=== PATIENT | female | born 1995 | race Two or more races ===

== ENCOUNTER 2019-12-30 17:13 | Inpatient (IN) | payer MEDICAID ==
[~2019-12-30] VITALS: Ht 170.2 cm; Wt 63.5 kg
--- NOTE | 2019-12-30 17:41 | NUR ---
glenn c/o sickle cell crisis started this morning around 9am 10/10 ps. PT PRESENTS MOANING, RESTLESS, FACIAL GRIMACING, GUARDING. DENIES SOB, DIZZINESS, WEAKNESS. SKIN WARM, DRY, INTACT. AOX4, AMBULATORY, VSS, RR EVEN AND UNLABORED. ON MONITOR AND READY FOR EVAL.
[2019-12-30] MEDS ORDERED: ONDANSETRON HCL/PF 4 MG/2 ML VIAL ONE (17:49)
[2019-12-30] MEDS ORDERED: MORPHINE SULFATE INJ 4 MG/ML DISP.SYRIN ONE (17:49)
[2019-12-30] MEDS ORDERED: MORPHINE SULFATE INJ 2 MG/ML DISP.SYRIN IV ONE (18:00)
[2019-12-30] MEDS ORDERED: ONDANSETRON HCL/PF 4 MG/2 ML VIAL IVP ONE (18:00)
[2019-12-30] MEDS ORDERED: IV NS 0.9% 1,000 ML BAG IV ONE (18:00)
--- NOTE | 2019-12-30 18:20 | NUR ---
IV LINE ESTABLISHED. MEDS GIVEN, IVF INFUSING. PT LETICIA WELL.
[2019-12-30] MEDS ORDERED: HYDROMORPHONE 1 MG/1 ML DISP.SYRIN IV ONE ×3 (18:30→20:30)
[2019-12-30] MEDS ORDERED: HYDROMORPHONE 1 MG/1 ML DISP.SYRIN ONE ×3 (18:45→20:46)
[2019-12-30 19:01] LABS: BASOPHILS # (AUTO) 0.2 /CMM (0.0-0.2); BASOPHILS % (AUTO) 1.1 % (0.0-2.0); EOSINOPHILS % (AUTO) 0.1 % (0.0-6.0); HEMATOCRIT 29 % (33-45); HEMOGLOBIN 9.6 g/dL (11.5-14.8); LYMPHOCYTES # (AUTO) 1.5 /CMM (0.8-4.8); LYMPHOCYTES % (AUTO) 7.3 % (20.0-44.0); MEAN CORPUSCULAR HGB CONC 33 g/dl (31.0-36.0); MEAN CORPUSCULAR VOLUME 87 fL (82-100); MONOCYTES # (AUTO) 1.6 /CMM (0.1-1.30); MONOCYTES % (AUTO) 7.7 % (2.0-12.0); NEUTROPHILS # (AUTO) 17.8 /CMM (1.8-8.9); NEUTROPHILS % (AUTO) 83.8 % (43.0-81.0); PLATELET COUNT (AUTO) 338 /CMM (150-450); RED BLOOD CELL COUNT(AUTO) 3.33 MIL/uL (4.0-5.2); WHITE BLOOD COUNT (AUTO) 21.2 K/uL (4.3-11.0)
[2019-12-30 19:13] LABS: CALCIUM, SERUM 8.8 mg/dL (8.5-10.1); CARBON DIOXIDE 27 mmol/L (21-32); CHLORIDE 103 mmol/L (98-107); CREATININE 0.7 mg/dL (0.6-1.3); GLUCOSE 109 mg/dL (74-106); POTASSIUM 3.4 mmol/L (3.5-5.1); SODIUM SERUM 140 mmol/L (136-145); UREA NITROGEN, BLOOD 9 mg/dL (7-18)
--- NOTE | 2019-12-30 19:15 | NUR ---
PT REPORTS LITTLE PAIN RELIEF. VULCAN CREWMEMBER GILBERT NOTIFIED.
[2019-12-30 19:19] LABS: ALANINE AMINOTRANSFERASE 18 U/L (12-78); ALBUMIN 4.1 g/dL (3.4-5.0); ALKALINE PHOSPHATASE 75 U/L (46-116); ASPARTATE AMINOTRANSFERASE 45 U/L (15-37); BILIRUBIN,DIRECT 0.4 mg/dL (0.0-0.2); BILIRUBIN,TOTAL 1.4 mg/dL (0.2-1.0); TOTAL PROTEIN, SERUM 7.3 g/dL (6.4-8.2)
[2019-12-30] MEDS ORDERED: diphenhydrAMINE HCL 50 MG/ML VIAL ONE (19:25)
[2019-12-30] MEDS ORDERED: diphenhydrAMINE HCL 50 MG/ML VIAL IV ONE (19:30)
--- NOTE | 2019-12-30 20:26 | NUR ---
ER PROVIDER ON PHONE WITH HOSPITALIST
--- NOTE | 2019-12-30 20:32 | NUR ---
CALLED SUP FOR MS BED
[2019-12-30] MEDS ORDERED: IV 1/2NS 1000 ML 1,000 ML IV PRN (20:44)
--- NOTE | 2019-12-30 20:50 | NUR ---
CALLED SUP FOR NOW TELE BED. NOT MS
[2019-12-30] MEDS ORDERED: ZOLPIDEM TARTRATE 5 MG TABLET PO PRN (21:00)
[2019-12-30] MEDS ORDERED: Z GUARD REMEDY 2 OZ OINT TP PRN (21:00)
[2019-12-30] MEDS ORDERED: MAG HYDROX/AL HYDROX/SIMETH 30 ML UDC PO PRN (21:00)
[2019-12-30] MEDS ORDERED: ONDANSETRON HCL/PF 4 MG/2 ML VIAL IVP PRN (21:00)
[2019-12-30] MEDS ORDERED: ACETAMINOPHEN 325 MG TABLET PO PRN (21:00)
[2019-12-30] MEDS ORDERED: HYDROMORPHONE INJ 2 MG/ML DISP.SYRIN IV PRN (21:00)
[2019-12-30] MEDS ORDERED: MAGNESIUM HYDROXIDE 30 ML UDC PO PRN (21:00)
--- NOTE | 2019-12-30 21:29 | NUR ---
CALLED TO GIVE REPORT. RECEIVING NURSE UNAVAILABLE AT THIS TIME. WILL CALL BACK
--- NOTE | 2019-12-30 21:36 | NUR ---
REPORT GIVEN TO ENA CARRINGTON FOR [facility] [facility] ACCEPTING
--- NOTE | 2019-12-30 21:47 | NUR ---
PT TRANSFERRED TO UNIT VIA GURNEY PER ACLS PROTOCOL
--- NOTE | 2019-12-30 21:53 | NUR ---
KEYBOARD SPECIALIST NOTES PATIENT ARRIVED UNIT 215. PATIENT IS ALERT AND ORIENTED X 4. BREATHING EVEN AND UNLABORED ON 2L NC. SHOWS NO SIGNS OF ACUTE RESPIRATORY DISTRESS. PATIENT PAIN RATING 10/10. IV ON EJ 18G AND 22G L WRIST IS CLEAN DRY AND INTACT. SHOWS NO SIGNS OF INFILTRATION, NO REDNESS. SAFETY PRECAUTIONS IN PLACE. BELONGINGS CHECKLIST COMPLETED, ORIENTED TO ROOM AND STAFF. TELE MONITOR SR 90'S. BED IN LOWEST POSITION, LOCKED, AND CALL LIGHT KEPT WITHIN REACH. WILL CONTINUE TO MONITOR.
--- NOTE | 2019-12-30 21:53 | NUR ---
LINUX ADMIN NOTES PATIENT COMPLAINING OF PAIN 08/21. GIVEN DILAUDID [id number]. WILL CONTINUE TO MONITOR.
[2019-12-30 22:00] VITALS: BP 117/67
[2019-12-30 22:30] VITALS: BP 117/67
[2019-12-30] MEDS: HYDROCODONE/APAP 5/325MG 1 EACH TABLET PO PRN (23:19)
--- NOTE | 2019-12-30 23:19 | NUR ---
PATIENT FINANCIAL COUNSELOR NOTES PATIENT COMPLAINING OF PAIN 07/22. GIVEN NORCO [id number]. WILL CONTINUE TO MONITOR.
[2019-12-31] VITALS: BP 124/73
[2019-12-31] MEDS ORDERED: HYDROMORPHONE INJ 2 MG/ML DISP.SYRIN ONE (00:08)
--- NOTE | 2019-12-31 00:23 | NUR ---
TINTER PHOTOGRAPH NOTES PATIENT COMPLAINING OF PAIN 08/21. GIVEN DILAUDID [id number]. WILL CONTINUE TO MONITOR.
[2019-12-31] MEDS: HYDROCODONE/APAP 5/325MG 1 EACH TABLET PO PRN (02:59)
--- NOTE | 2019-12-31 02:59 | NUR ---
MAGNAFLUX OPERATOR NOTES PATIENT COMPLAINING OF PAIN 05/21. GIVEN NORCO [id number]. WILL CONTINUE TO MONITOR.
[2019-12-31] MEDS: HYDROMORPHONE INJ 2 MG/ML DISP.SYRIN IV PRN ×6 (04:01→21:36)
--- NOTE | 2019-12-31 04:01 | NUR ---
SIEVE MAKER NOTES PATIENT COMPLAINING OF PAIN 08/21. GIVEN DILAUDID [id number]. WILL CONTINUE TO MONITOR.
[2019-12-31 04:10] VITALS: BP 132/92
--- NOTE | 2019-12-31 06:49 | NUR ---
SALESPERSON MEN'S AND BOYS' CLOTHING NOTES PATIENT IS ALERT AND ORIENTED X 4. BOYFRIEND AT BEDSIDE. BREATHING EVEN AND UNLABORED ON 2L NC. SHOWS NO SIGNS OF ACUTE RESPIRATORY DISTRESS. PATIENT PAIN RATING 10/10. IV ON EJ 18G AND 22G L WRIST IS CLEAN DRY AND INTACT. RUNNING 1/2 NS AT 75ML/HR. SHOWS NO SIGNS OF INFILTRATION, NO REDNESS. ALL DUE MEDICATIONS GIVEN. SAFETY PRECAUTIONS IN PLACE. TELE MONITOR SINUS TACH 100'S. BED IN LOWEST POSITION, LOCKED, AND CALL LIGHT KEPT WITHIN REACH. WILL ENDORSE TO ONCOMING NURSE.
--- NOTE | 2019-12-31 07:51 | NUR ---
TELE/RN OPENING NOTE Patient is resting in bed, A/O x4, showing no signs of acute distress or SOB, saturating >95% on 2L NC. IV line is clean and intact L wrist #22g runnning 1/2 NS @ 75ml/hr. #18g external jugular noted. Patient has complaints of pain at this time and stated "I don't think the pain medication i'm getting is working." I told her I will relay that information to the MD. Last pain med given by paper cone machine operator RN at 0712 this AM. Bed is in lowest position, side rails x2 in upright position, call light is within reach and patient is aware of how to call for assistance when needed. Boyfriend is at the bedside. Will continue with plan of care. Addendum: 12/31/19 at 0756 by GWENDOLYN JACOB RN Tele monitor SR/ST w/PVCs
[2019-12-31 07:58] LABS: BASOPHILS # (AUTO) 0.1 /CMM (0.0-0.2); BASOPHILS % (AUTO) 0.4 % (0.0-2.0); HEMATOCRIT 29 % (33-45); HEMOGLOBIN 9.8 g/dL (11.5-14.8); LYMPHOCYTES # (AUTO) 1.9 /CMM (0.8-4.8); LYMPHOCYTES % (AUTO) 8.7 % (20.0-44.0); MEAN CORPUSCULAR HGB CONC 34 g/dl (31.0-36.0); MEAN CORPUSCULAR VOLUME 86 fL (82-100); MONOCYTES # (AUTO) 2.5 /CMM (0.1-1.30); MONOCYTES % (AUTO) 11.4 % (2.0-12.0); NEUTROPHILS # (AUTO) 17.5 /CMM (1.8-8.9); NEUTROPHILS % (AUTO) 79.5 % (43.0-81.0); PLATELET COUNT (AUTO) 343 /CMM (150-450); RED BLOOD CELL COUNT(AUTO) 3.35 MIL/uL (4.0-5.2)
[2019-12-31 08:00] VITALS: BP 113/64
[2019-12-31 08:57] LABS: CALCIUM, SERUM 8.8 mg/dL (8.5-10.1); CREATININE 0.6 mg/dL (0.6-1.3); MAGNESIUM 1.6 mg/dL (1.8-2.4); PHOSPHORUS 3.1 mg/dL (2.5-4.9); POTASSIUM 3.3 mmol/L (3.5-5.1); THYROID STIMULATING HORMONE 2.122 uIU/mL (0.358-3.74)
[2019-12-31] MEDS: IV 1/2NS 1000 ML 1,000 ML IV SCH (09:12)
--- NOTE | 2019-12-31 09:34 | NUR ---
TELE/RN NOTE Patient requested for Dilauded to be [id number] instead of [id number]. Stated that is what she usually gets when she is being hospitalized. Notified MD and he gave the ok to change Dilauded to [id number].
[2019-12-31] MEDS: POTASSIUM CHLORIDE 20 MEQ TAB.PRT.SR PO SCH (13:11)
[2019-12-31 16:00] VITALS: BP 116/74
[2019-12-31] MEDS: ACETAMINOPHEN 325 MG TABLET PO SCH (17:07)
[2019-12-31] MEDS: KETOROLAC TROMETHAMINE INJ 30 MG/ML VIAL IV SCH (17:07)
--- NOTE | 2019-12-31 19:34 | NUR ---
MS/RN CLOSING NOTE Patient is resting in bed, A/O x4, showing no signs of acute distress or SOB, saturating >95% on 2L NC. IV line is clean and intact L wrist #22g running 1/2 NS @ 75ml/hr. Patient seen by MD and pain medications given per MD order. Last medication given Tylenol 650mg @ 1707 and Toradol 30mg @1707. Patient's vital signs WNL. Bed is in lowest position, side rails x2 in upright position, call light is within reach and patient is aware of how to call for assistance when needed. Will endorse to night manager. .
[2019-12-31] MEDS: oxyCODONE IR immediate release 5 MG PO PRN (19:41)
--- NOTE | 2019-12-31 19:41 | NUR ---
MS RN NOTES PATIENT PRESENTS OF PAIN, RATING PAIN LEVEL OF 8/10. PAIN LOCATED ON LOWER BACK AND BOTH LEGS DESCRIBED A SHARP AND PRESSURED PAIN. ADMINISTERED OXY IR 10 mg PO. PATIENTS VITAL SIGNS WNL, BP: 117/69, HR: 74, O2 SAT: 99%, TEMP: 98.0, AND RESPIRATORY RATE: 17. WILL CONTINUE TO MONITOR PATIENT.
[2019-12-31 20:00] VITALS: BP 117/69
--- NOTE | 2019-12-31 20:23 | NUR ---
MS RN NOTES PATIENT RECEIVED IN BED RESTING, ALERT AND ORIENTED X 4. PATIENT ON NASAL CANNULA FOR COMFORT MEASURES, O2 SATURATION >95%. NO SIGNS OF RESPIRATORY DISTRESS PRESENT, WITH EVEN NON-LABORED BREATHING. PATIENT IV ACCESS CLEAN, IN PLACE, AND INTACT ON LEFT WRIST 22 GAUGE. PROVIDED COMFORT MEASURES TO PATIENT, PRESENTING WITH PAIN UPON SHIFT, STATED PAIN LEVEL OF 8/10, PRESENTING IN HER LOWER BACK AND LEGS. SAFETY PRECAUTIONS IN PLACE WITH BED IN THE LOWEST POSITION, BILATERAL SIDE RAILS UP, BED ALARM ON, BED LOCKED, AND CALL LIGHT WITHIN EASY REACH. WILL CONTINUE TO MONITOR PATIENT.
--- NOTE | 2019-12-31 21:41 | NUR ---
MS RN NOTES PATIENT STATES PAIN LEVEL 10/10. PATIENT KEPT ASKING WHEN PAIN MEDICATION IS DUE, ADMINISTERED PAIN MEDICATION, DILAUDID. VITAL SIGNS WNL, BP 117/69, HR: 74, O2 SAT:99%. WILL CONTINUE TO MONITOR PATIENT.
[2019-12-31] MEDS ORDERED: HYDROMORPHONE INJ 2 MG/ML DISP.SYRIN IV PRN ×2 (23:45)
[2020-01-01] MEDS: ACETAMINOPHEN 325 MG TABLET PO SCH ×5 (00:29→23:08)
[2020-01-01] MEDS: KETOROLAC TROMETHAMINE INJ 30 MG/ML VIAL IV SCH ×3 (01:04→17:25)
--- NOTE | 2020-01-01 06:21 | NUR ---
MS RN NOTES PATIENT IN BED RESTING, EASILY AWAKEN BY NAME AND LIGHT TOUCH. ALERT AND ORIENTED X 4. ON NASAL CANNULA, AND NO SIGNS OF RESPIRATORY DISTRESS PRESENT, NO SOB PRESENT, WITH NON-LABORED BREATHING. PATIENT IV ACCESS ON LEFT WRIST, 22 GAUGE, IN PLACE, INTACT AND PATENT RUNNING 1/2 NS AT 75 mL/HR. SKIN KEPT CLEAN AND DRY. PATIENT PRESENTS NO SIGN OF PAIN OR DISCOMFORT AT THE MOMENT, PROVIDED COMFORT MEASURES TO THE PATIENT. SAFETY PRECAUTIONS IN PLACE WITH BED IN THE LOWEST POSITION, BED ALARM ON, BED LOCKED, BILATERAL SIDE RAILS UP, AND CALL LIGHT WITHIN EASY REACH. WILL ENDORSE GULSHAN TO UPCOMING AM NURSE.
[2020-01-01] MEDS: IV 1/2NS 1000 ML 1,000 ML IV SCH ×3 (06:37→17:26)
--- NOTE | 2020-01-01 07:33 | NUR ---
MS/RN OPENING NOTE Patient is resting in bed, A/O x4, showing no signs of acute distress or SOB, saturating >95% on 2L NC. IV line is clean and intact Left wrist #22g running 0.45% NS @ 75ml/hr. Bed is in lowest position, side rails x2 in upright position, call light is within reach and patient is aware of how to call for assistance when needed. Safety precautions enforced. Will continue with plan of care.
[2020-01-01 07:34] LABS: BASOPHILS # (AUTO) 0.1 /CMM (0.0-0.2); BASOPHILS % (AUTO) 0.7 % (0.0-2.0); EOSINOPHILS % (AUTO) 0.5 % (0.0-6.0); HEMATOCRIT 32 % (33-45); HEMOGLOBIN 10.6 g/dL (11.5-14.8); LYMPHOCYTES % (AUTO) 17.2 % (20.0-44.0); MEAN CORPUSCULAR HGB CONC 34 g/dl (31.0-36.0); MEAN CORPUSCULAR VOLUME 86 fL (82-100); MONOCYTES % (AUTO) 11.6 % (2.0-12.0); NEUTROPHILS # (AUTO) 12.2 /CMM (1.8-8.9); PLATELET COUNT (AUTO) 356 /CMM (150-450); RED BLOOD CELL COUNT(AUTO) 3.68 MIL/uL (4.0-5.2); WHITE BLOOD COUNT (AUTO) 17.5 K/uL (4.3-11.0)
[2020-01-01 08:00] VITALS: BP 110/66
[2020-01-01] MEDS: POTASSIUM CHLORIDE 20 MEQ TAB.PRT.SR PO SCH (08:05)
--- NOTE | 2020-01-01 08:30 | NUR ---
MS/RN NOTE Patient states she has constipation, refused any medications for constipation. She agreed to drink warm prune juice. Prune juice given.
[2020-01-01 08:58] LABS: CALCIUM, SERUM 9.3 mg/dL (8.5-10.1); CREATININE 0.7 mg/dL (0.6-1.3); POTASSIUM 3.5 mmol/L (3.5-5.1)
[2020-01-01 09:02] LABS: MAGNESIUM 1.6 mg/dL (1.8-2.4); PHOSPHORUS 3.4 mg/dL (2.5-4.9)
[2020-01-01] MEDS: oxyCODONE IR immediate release 5 MG PO PRN ×2 (10:57→20:38)
[2020-01-01 12:00] VITALS: BP 113/65
[2020-01-01] MEDS: HYDROMORPHONE INJ 2 MG/ML DISP.SYRIN IV PRN (14:55)
[2020-01-01 16:00] VITALS: BP 125/78
[2020-01-01 16:03] VITALS: BP 125/78
[2020-01-01 18:09] VITALS: BP 105/62
--- NOTE | 2020-01-01 19:54 | NUR ---
MS/RN CLOSING NOTE Patient is resting in bed, A/O x4, showing no signs of acute distress or SOB, saturating >95% on 2L NC. IV line is clean and intact Left wrist #22g running 0.45% NS @ 125ml/hr. All patient needs met, all due meds given. Patient kept clean and dry throughout shift, able to use bedside commode with assistance. Bed is in lowest position, side rails x2 in upright position, call light is within reach and patient is aware of how to call for assistance when needed. Safety precautions enforced. Will continue with plan of care.
[2020-01-01 20:00] VITALS: BP 105/61
--- NOTE | 2020-01-01 20:11 | NUR ---
MS RN NOTES PATIENT RECEIVED IN BED, RESTING COMFORTABLY. ALERT AND ORIENTED X 4. PATIENT PRESENTS NO SIGNS OF RESPIRATORY DISTRESS, NO SIGNS OF SOB, WITH EVEN NON-LABORED BREATHING. SKIN INTACT AND DRY. IV ACCESS ON LEFT WRIST, 22 GAUGE, RUNNING 1/2 NS AT 125 mL/HR. PROVIDED COMFORT MEASURES TO THE PATIENT. SAFETY PRECAUTIONS IN PLACE WITH BED IN THE LOWEST POSITION, BED ALARM ON, BED LOCKED, BILATERAL SIDE RAILS UP, SEMI-FOWLERS POSITION AND CALL LIGHT WITHIN EASY REACH. WILL CONTINUE TO MONITOR PATIENT.
--- NOTE | 2020-01-01 20:38 | NUR ---
MS RN NOTES PATIENT STATING SHE IS IN PAIN, VERBALIZED "AM I DUE FOR MY PAIN MEDICATION, MY PAIN LEVEL IS 10/10." PROVIDED COMFORT MEASURES TO PATIENT. ADMINISTER OXY IR PO. VITAL SIGNS, BP: 105/61, HR:76, RESPIRATORY RATE: 19, O2 SAT:98% WILL CONTINUE TO MONITOR PATIENT.
--- NOTE | 2020-01-02 00:20 | NUR ---
RN NOTES PT IV GOT INFILTRATED, SILVIANO CHARGE NURSE STARTED NEW IV LINE ON THE RIGHT FOREARM GAUGE 22
[2020-01-02] MEDS: HYDROMORPHONE INJ 2 MG/ML DISP.SYRIN IV PRN ×2 (00:21→22:35)
--- NOTE | 2020-01-02 00:21 | NUR ---
RN NOTES COMPLAINED OF GENERALIZED PAIN AND DILAUDID 2MG IV GIVEN FOR BREAKTHROUGH PAIN, V/S STABLE
[2020-01-02] MEDS: KETOROLAC TROMETHAMINE INJ 30 MG/ML VIAL IV SCH ×3 (00:52→17:24)
[2020-01-02] MEDS: IV 1/2NS 1000 ML 1,000 ML IV SCH (05:41)
[2020-01-02] MEDS: ACETAMINOPHEN 325 MG TABLET PO SCH ×3 (06:00→18:00)
--- NOTE | 2020-01-02 06:14 | NUR ---
MS RN NOTES PATIENT IN BED SLEEPING EASILY AWOKEN BY NAME AND LIGHT TOUCH, ALERT AND ORIENTED X 4. NO SIGNS OF RESPIRATORY DISTRESS, NO SIGNS OF SHORTNESS OF BREATH, AND EVEN NON-LABORED BREATHING. PATIENT IV ACCESS ON RIGHT FOREARM, INTACT AND PATENT, RUNNING 0.45% NS @125 mL/HR. PATIENT KEPT CLEAN AND DRY. PATIENT REFUSED AM MEDICATION ACETAMINOPHEN, PATIENT DENIES AND PRESENTS NO PAIN OR DISCOMFORT. PROVIDED COMFORT MEASURES TO THE PATIENT. SAFETY PRECAUTIONS IN PLACE WITH THE BED IN THE LOWEST POSITION, BED ALARM ON, BED LOCKED, BILATERAL SIDE RAILS UP, AND CALL LIGHT WITHIN EASY REACH. WILL ENDORSE GULSHAN TO UPCOMING AM NURSE.
[2020-01-02 06:52] LABS: BASOPHILS # (AUTO) 0.1 /CMM (0.0-0.2); BASOPHILS % (AUTO) 0.7 % (0.0-2.0); EOSINOPHILS % (AUTO) 0.2 % (0.0-6.0); HEMATOCRIT 29 % (33-45); HEMOGLOBIN 9.6 g/dL (11.5-14.8); LYMPHOCYTES # (AUTO) 2.7 /CMM (0.8-4.8); MEAN CORPUSCULAR HGB CONC 33 g/dl (31.0-36.0); MEAN CORPUSCULAR VOLUME 86 fL (82-100); MONOCYTES # (AUTO) 1.9 /CMM (0.1-1.30); MONOCYTES % (AUTO) 12.2 % (2.0-12.0); NEUTROPHILS % (AUTO) 69.9 % (43.0-81.0); PLATELET COUNT (AUTO) 337 /CMM (150-450); RED BLOOD CELL COUNT(AUTO) 3.37 MIL/uL (4.0-5.2); WHITE BLOOD COUNT (AUTO) 15.7 K/uL (4.3-11.0)
[2020-01-02 07:08] LABS: CALCIUM, SERUM 8.5 mg/dL (8.5-10.1); CREATININE 0.6 mg/dL (0.6-1.3); MAGNESIUM 1.7 mg/dL (1.8-2.4); PHOSPHORUS 3.8 mg/dL (2.5-4.9); POTASSIUM 3.5 mmol/L (3.5-5.1)
--- NOTE | 2020-01-02 07:30 | NUR ---
M/S RN NOTES PATIENT RESTING IN BED, NO RESPIRATORY DISTRESS, PAIN TOLERABLE AT THIS TIME WITH PAIN MEDICATIONS ORDERED. SKIN WARM TO TOUCH, IV ACCESS SITE ON THE RFA #22G, INTACT AND PATENT, INFUSING 1/2NS AT 125ML/HR. PATIENT'S NEEDS ATTENDED, BED ON LOWEST LOCKED POSITION, CALL LIGHT WITHIN REACH. WILL CONTINUE TO MONITOR.
[2020-01-02 08:00] VITALS: BP 98/60
[2020-01-02] MEDS: POTASSIUM CHLORIDE 20 MEQ TAB.PRT.SR PO SCH (08:23)
[2020-01-02] MEDS: Magnesium 1GM/D5W 100ML PREMIX 100 ML IV SCH ×2 (10:35→11:36)
[2020-01-02] MEDS: oxyCODONE IR immediate release 5 MG PO PRN ×3 (12:30→19:48)
[2020-01-02 16:00] VITALS: BP 107/65
[2020-01-02] MEDS: IV 1/2NS 1000 ML 1,000 ML IV PRN (17:42)
--- NOTE | 2020-01-02 19:22 | NUR ---
MS/RN OPENING NOTES: RECEIVED PATIENT RESTING IN BED, A/OX4. NO SOB NOTED. NO RESPIRATORY DISTRESS, NO COMPLAINS OF PAIN AT THIS TIME. SKIN WARM TO TOUCH, IV ACCESS SITE ON THE RFA #22G, INTACT AND PATENT, INFUSING 1/2NS AT 125ML/HR. PATIENT'S NEEDS ATTENDED AT THIS TIME. SAFETY MEASURES IN PLACE, BED ON LOWEST, LOCKED POSITION, CALL LIGHT WITHIN REACH WITH SR UP X2. WILL CONTINUE TO MONITOR PATIENT ACCORDINGLY.
--- NOTE | 2020-01-02 19:48 | NUR ---
MS/RN NOTES: PATIENT COMPLAINED OF GENERALIZED PAIN LEVEL OF 10. ADMINISTERED OXY IR 10MG PO PRN. TOLERATED WELL. VS WNL. WILL REASSESS AND CONTINUE MONITORING PT. ACCORDINGLY.
[2020-01-02 20:00] VITALS: BP 139/85
--- NOTE | 2020-01-02 22:35 | NUR ---
MS/RN NOTES: PATIENT COMPLAINED OF GENERALIZED PAIN LEVEL OF 8. ADMINISTERED DILAUDID 2MG IV PRN FOR BREAKTHROUGH PAIN. VS WNL. WILL REASSESS AND CONTINUE MONITORING PT. ACCORDINGLY.
[2020-01-03] MEDS: KETOROLAC TROMETHAMINE INJ 30 MG/ML VIAL IV SCH ×2 (00:35→08:23)
[2020-01-03] MEDS: IV 1/2NS 1000 ML 1,000 ML IV PRN ×2 (01:58→10:42)
[2020-01-03] MEDS: ACETAMINOPHEN 325 MG TABLET PO SCH ×5 (06:00→23:39)
--- NOTE | 2020-01-03 06:29 | NUR ---
MS/RN CLOSING NOTES: PATIENT SLEEPING IN BED, A/OX4. NO SIGNIFICANT CHANGES IN CONDITION. PAIN MANAGED THROUGH THE NIGHT. NO SOB NOTED. NO RESPIRATORY DISTRESS, NO COMPLAINS OF PAIN AT THIS TIME. SKIN WARM TO TOUCH, IV ACCESS SITE ON THE RFA #22G INTACT AND PATENT WITH 0.45 NS RUNNING AT 125MLS/HR. ALL MEDS GIVEN ORDERED. PATIENT'S NEEDS ATTENDED AT THIS TIME. SAFETY MEASURES IN PLACE, BED ON LOWEST, LOCKED POSITION, CALL LIGHT WITHIN REACH WITH SR UP X2. WILL ENDORSE TO DAYSHIFT NURSE FOR GULSHAN.
[2020-01-03] MEDS: HYDROMORPHONE INJ 2 MG/ML DISP.SYRIN IV PRN ×3 (07:45→20:34)
--- NOTE | 2020-01-03 07:55 | NUR ---
MS RN OPENING NOTES RECEIVED PATIENT IN BED, SLEEPING. AROUSABLE, AND ABLE TO MAKE NEEDS KNOWN. PT IS AOX4. NO CARDIAC OR RESPIRATORY DISTRESS NOTED. NO SOB NOTED. NO RESPIRATORY DISTRESS, IV ACCESS SITE NOTED ON THE RFA #22G INTACT AND PATENT WITH 0.45 NS RUNNING AT 125MLS/HR. PT IS CONTIENT OF B/B. USES BEDPAN OR BEDSIDE COMMODE. SAFETY MEASURES IN PLACE, BED ON LOWEST, LOCKED POSITION, CALL LIGHT WITHIN REACH WITH SR UP X2.
[2020-01-03 08:00] VITALS: BP 91/50
[2020-01-03] MEDS: POTASSIUM CHLORIDE 20 MEQ TAB.PRT.SR PO SCH (08:14)
[2020-01-03 11:15] LABS: CALCIUM, SERUM 8.8 mg/dL (8.5-10.1); CREATININE 0.6 mg/dL (0.6-1.3); MAGNESIUM 1.6 mg/dL (1.8-2.4); POTASSIUM 4.1 mmol/L (3.5-5.1)
[2020-01-03] MEDS: oxyCODONE IR immediate release 5 MG PO PRN ×2 (12:00→18:54)
[2020-01-03 12:18] LABS: APPEARANCE,URINE CLEAR (CLEAR); BILIRUBIN,URINE NEGATIVE (NEGATIVE); BLOOD, URINE NEGATIVE Ery/uL (NEGATIVE); COLOR,URINE YELLOW (YELLOW); KETONES,URINE NEGATIVE (NEGATIVE); LEUKOCYTE ESTERASE ,URINE NEGATIVE (NEGATIVE); NITRITE, URINE NEGATIVE (NEGATIVE); PH,URINE 6.5 (5.0-8.0); PROTEIN,URINE NEGATIVE (NEGATIVE); UGLUCOSE NEGATIVE (NEGATIVE); UROBILINOGEN,URINE >=8.0 EU/dL (0.2)
[2020-01-03 12:26] LABS: BACTERIA,URINE None seen /HPF (None Seen); RBC,URINE NONE SEEN /HPF (0-2); SQUAMOUS EPITHELIAL CELL,UR Few /HPF (None Seen); WBC,URINE NONE SEEN /HPF (0-3)
[2020-01-03 16:00] VITALS: BP 108/63
--- NOTE | 2020-01-03 18:15 | NUR ---
MS RN CLOSING NOTES PATIENT IN BED, AWAKE ALERT AND ORIENTED X4. BOYFRIEND IS CURRENTLY BY BEDSIDE. . NO CARDIAC OR RESPIRATORY DISTRESS NOTED. NO SOB NOTED. NO RESPIRATORY DISTRESS, IV ACCESS SITE NOTED ON THE RFA #22G INTACT AND PATENT WITH 0.45 NS RUNNING AT 125MLS/HR. PT IS CONTINENT OF B/B. USES BEDPAN OR BEDSIDE COMMODE. PTS PAIN WAS MANAGED THROUGHOUT THE ENTIRE SHIFT. AT THIS MOMENT PT STATES THAT SHE FEELS COLD AND CHILLY. TEMP WAS CHECKED NOTED TO BE 98.5. PT IS AFEBRILE. BP NOTED TO AT 108/63. ASKED PT IF HE FEELS ANYTHING ELSE BESIDES FEELING CHILLY. SHE STATED, 'NO. NOTHING ELSE. I JUST FEEL COLD". ADJUSTED TEMP IN ROOM. PROVIDED WITH WARM BLANKET. SHE STATES SHE FEELS MUCH BETTER. SAFETY MEASURES IN PLACE, BED ON LOWEST, LOCKED POSITION, CALL LIGHT WITHIN REACH WITH SR UP X2.
--- NOTE | 2020-01-03 19:36 | NUR ---
MS RN OPENING NOTES PATIENT RESTING IN BED COMFORTABLY; A/O X4; BREATHING EVEN AND UNLABORED; NO SOB; NO S/S OF ACUTE RESPIRATORY DISTRESS NOTED; PATIENT TOLERATING ROOM AIR WELL; R FA #22 INTACT AND PATENT; FLUSHING WELL; 1/2 NS RUNNING @ 125ML/HR; SAFETY PRECAUTIONS IMPLEMENTED; CALL LIGHT WITHIN REACH; WILL CONTINUE TO MONITOR
[2020-01-03 20:00] VITALS: BP 110/60
--- NOTE | 2020-01-03 20:34 | NUR ---
MS RN NOTES PATIENT COMPLAINING 10/10 PAIN; DILAUDID 2MG IV GIVEN ORDERED; WILL CONTINUE TO MONITOR
--- NOTE | 2020-01-04 | NUR ---
MS RN NOTES PATIENT DID NOT WANT TO TAKE TYLENOL ORDERED; PATIENT WAS EDUCATED ON IMPORTANCE OF COMPLIANCE THROUGHOUT HOSPITALIZATION; PATIENT VERBALIZED UNDERSTANDING AND PATIENT STILL REFUSED MED; PATIENT DID NOT WANT SCHEDULED TYLENOL; WILL CONTINUE TO MONITOR
[2020-01-04] MEDS: IV 1/2NS 1000 ML 1,000 ML IV PRN (01:55)
[2020-01-04] MEDS: ACETAMINOPHEN 325 MG TABLET PO SCH ×3 (05:01→11:45)
--- NOTE | 2020-01-04 06:25 | NUR ---
MS RN CLOSING NOTES PATIENT SLEEPING IN BED COMFORTABLY; NO SOB; NO S/S OF ACUTE RESPIRATORY DISTRESS NOTED; IV SITE INTACT AND PATENT, RUNNING 1/2 NS @ 125ML/HR; SAFETY PRECAUTIONS IMPLEMENTED; BED LOCKED IN LOW POSITION; SIDE RAILS X2; CALL LIGHT WITHIN REACH; ALL NEEDS RENDERED; WILL ENDORSE GULSHAN TO ONCOMING SHIFT
--- NOTE | 2020-01-04 07:10 | NUR ---
MS RN NOTES PATIENT REQUESTED SUPERVISOR TESTING TO RETURN AT A LATER TIME; WILL INFORM ONCOMING SHIFT
[2020-01-04] MEDS: oxyCODONE IR immediate release 5 MG PO PRN ×2 (07:32→12:14)
[2020-01-04 08:00] VITALS: BP 99/55
--- NOTE | 2020-01-04 08:00 | NUR ---
MS RN OPENING NOTES RECEIVED PATIENT IN BED, AWAKE ALERT AND ORIENTE X 4. VERY PLEASANT 24 Y/O FEMALE. AND ABLE TO MAKE NEEDS KNOWN. PT IS NO CARDIAC OR RESPIRATORY DISTRESS NOTED. NO SOB NOTED. NO RESPIRATORY DISTRESS, IV ACCESS SITE NOTED ON THE RFA #22G INTACT AND PATENT WITH 0.45 NS RUNNING AT 125MLS/HR. TOLERATING IV FLUIDS WELL. PT IS CONTINENT OF B/B. USES BEDSIDE COMMODE. SAFETY MEASURES IN PLACE, BED ON LOWEST, LOCKED POSITION, CALL LIGHT WITHIN REACH WITH SR UP X2.
[2020-01-04] MEDS: POTASSIUM CHLORIDE 20 MEQ TAB.PRT.SR PO SCH (08:18)
[2020-01-04] MEDS ORDERED: ONDA4TAB5 PO (08:55)
[2020-01-04] MEDS ORDERED: OXYC-454 PO (08:55)
[2020-01-04] MEDS: HYDROMORPHONE INJ 2 MG/ML DISP.SYRIN IV PRN (08:55)
--- NOTE | 2020-01-04 11:45 | NUR ---
REFUSED TYLENOL PT REFUSED TYLENOL, STATES THAT IT DOESNT REALLY WORK FOR HER. EXPLAIN RISKS AND BENEFITS X3. PT UNDERSTOOD. BUT STILL REFUSED. SHE STATES THAT THE OXYCODONE WORKS FOR HER BETTER
--- NOTE | 2020-01-04 12:25 | NUR ---
D/C HOME PT DISCHARGED HOME. D/C INSTRUCTIONS GIVEN. PT WAS IN STABLE CONDITION. NO CARDIAC OR RESPIRATORY DISTRESS NOTED. ALL D/C INSTRUCTIONS PROVIDED TO PT. EXPLAINED ALL MEDS IN LAYMENS TERM. PT UNDERSTOPOD TEACHING. EDUCATIONAL PACKET PROVIDED AND EXPLAINED INFORMATION PROVIDED. PT UNDERSTOOD. PT WAS VERY THANKFUL ABOUT ALL THE CARE STAFF HAD PROVIDED. PT LEFT WITH BOYFRIEND AND WAS WHEELED OUT OF THE UNIT BY THE DINKING MACHINE OPERATOR.
== END 2020-01-04 12:30 | disposition home or self-care (01) | DRG 662 ==
LOC: ER 17:13 → MED 20:59 → TELE 22:00 → MED 12-31 09:06
PROVIDERS: ADMIT Student in an Organized Health Care Education/Training Program; ATTEND Nurse Practitioner Acute Care
DX: D57.00 Hb-SS disease with crisis, unspecified (principal); E83.42 Hypomagnesemia; D64.9 Anemia, unspecified; D72.829 Elevated white blood cell count, unspecified; E87.6 Hypokalemia; Z90.81 Acquired absence of spleen; Z98.890 Other specified postprocedural states; Z87.440 Personal history of urinary (tract) infections; Z86.73 Personal history of transient ischemic attack (TIA), and cerebral infarction without residual deficits; Z88.0 Allergy status to penicillin; R74.0 Nonspecific elevation of levels of transaminase and lactic acid dehydrogenase [LDH]; Z90.49 Acquired absence of other specified parts of digestive tract
CPT/HCPCS: 36415; 71045-TC; 80048-TC; 80061-TC; 80076-TC; 81000-TC; 83735-TC; 84100-TC; 84443-TC; 84484-TC; 84702-TC; 84703-TC; 85025-TC; 85045-TC; 85730-TC; 87081-TC; A6407; G0378; J1170; J1200; J1885; J2270; J2405; J3475; J3490; J7030

== ENCOUNTER 2021-03-23 01:30 | Inpatient (IN) | payer MEDICAID, OTHER ==
[~2021-03-23] VITALS: Ht 170.2 cm; Wt 55.8 kg
[~2021-03-23 01:30] MED LIST: ONDA4TAB5 PO; OXYC1TAB12 PO
--- NOTE | 2021-03-23 01:36 | NUR ---
SAMANTHA C/O BACK PAIN X 1 HR. HX SICKLE CELL. TO ER BED 16 AWAITING
[2021-03-23] MEDS ORDERED: ONDANSETRON HCL/PF 4 MG/2 ML VIAL ONE (01:40)
[2021-03-23] MEDS ORDERED: HYDROMORPHONE 1 MG/1 ML DISP.SYRIN ONE ×3 (01:40→04:12)
[2021-03-23] MEDS ORDERED: KETOROLAC TROMETHAMINE 15 MG/ML VIAL ONE ×3 (01:40→04:02)
[2021-03-23] MEDS ORDERED: IV NS 0.9% 1,000 ML BAG IV ONE (02:00)
[2021-03-23] MEDS ORDERED: KETOROLAC TROMETHAMINE INJ 30 MG/ML VIAL IV ONE ×2 (02:00→04:00)
[2021-03-23] MEDS ORDERED: HYDROMORPHONE INJ 2 MG/ML DISP.SYRIN IV ONE ×2 (02:00→06:00)
[2021-03-23] MEDS ORDERED: ONDANSETRON HCL/PF 4 MG/2 ML VIAL IVP ONE (02:00)
[2021-03-23 02:19] LABS: BASOPHILS # (AUTO) 0.2 /CMM (0.0-0.2); BASOPHILS % (AUTO) 1.1 % (0.0-2.0); HEMATOCRIT 26 % (33-45); LYMPHOCYTES # (AUTO) 5.2 /CMM (0.8-4.8); LYMPHOCYTES % (AUTO) 28.7 % (20.0-44.0); MEAN CORPUSCULAR HGB CONC 34 g/dl (31.0-36.0); MEAN CORPUSCULAR VOLUME 85 fL (82-100); MONOCYTES # (AUTO) 1.5 /CMM (0.1-1.30); MONOCYTES % (AUTO) 8.5 % (2.0-12.0); NEUTROPHILS # (AUTO) 10.9 /CMM (1.8-8.9); NEUTROPHILS % (AUTO) 60.7 % (43.0-81.0); PLATELET COUNT (AUTO) 324 /CMM (150-450); RED BLOOD CELL COUNT(AUTO) 3.08 MIL/uL (4.0-5.2)
[2021-03-23 02:29] LABS: CREATININE 0.7 mg/dL (0.6-1.3)
[2021-03-23 02:36] LABS: ALBUMIN 4.3 g/dL (3.4-5.0); BILIRUBIN,DIRECT 0.3 mg/dL (0.0-0.2); BILIRUBIN,TOTAL 2.4 mg/dL (0.2-1.0); TOTAL PROTEIN, SERUM 7.6 g/dL (6.4-8.2)
[2021-03-23] MEDS ORDERED: HYDROMORPHONE 1 MG/1 ML DISP.SYRIN IV ONE (03:00)
[2021-03-23] MEDS: HYDROMORPHONE 1 MG/1 ML DISP.SYRIN IV PRN ×7 (04:16→23:29)
[2021-03-23] MEDS ORDERED: HYDROMORPHONE INJ 2 MG/ML DISP.SYRIN ONE (05:40)
[2021-03-23] MEDS ORDERED: IV NS 0.9% 1,000 ML IV PRN (06:00)
[2021-03-23] MEDS ORDERED: MAGNESIUM HYDROXIDE 30 ML UDC PO PRN (06:00)
[2021-03-23] MEDS ORDERED: ACETAMINOPHEN 325 MG TABLET PO PRN (06:00)
[2021-03-23] MEDS ORDERED: ZOLPIDEM TARTRATE 5 MG TABLET PO PRN (06:00)
--- NOTE | 2021-03-23 06:25 | NUR ---
pt remains in bed, pain meds given recently and not again due. will continue to monitor
--- NOTE | 2021-03-23 07:31 | NUR ---
BED ASSIGNED 316-1
--- NOTE | 2021-03-23 07:34 | NUR ---
REPORT GIVEN TO MORENO SUTHERLAND FOR GULSHAN.
[2021-03-23 08:00] VITALS: BP 97/54
--- NOTE | 2021-03-23 08:19 | NUR ---
PATIENT TRANSFERRED TO ROOM 316-1 IN STABLE CONDITION.
--- NOTE | 2021-03-23 08:20 | NUR ---
ms darrel received a new patient from er, awake,alert,oriented x4, came in w/ dx of sickle cell disease,complaining of generalized pain right away, will check orders from md,all needs attended.
--- NOTE | 2021-03-23 11:00 | NUR ---
rn pain meds given per order.
[2021-03-23 11:15] VITALS: BP 97/54
--- NOTE | 2021-03-23 12:00 | NUR ---
ms rn patient complain of pain, i took 1 mg of dilaudid from the [facility].went to patient but she wamts 2mg of dilaudid. i did not return the dilaudid i got , waiting for dr. craig's order.
[2021-03-23] MEDS ORDERED: KETOROLAC TROMETHAMINE INJ 30 MG/ML VIAL IM PRN (12:30)
--- NOTE | 2021-03-23 12:45 | NUR ---
ms darrel bess gave 2mg per md's order.
[2021-03-23] MEDS: ONDANSETRON HCL/PF 4 MG/2 ML VIAL IVP PRN (12:46)
--- NOTE | 2021-03-23 13:00 | NUR ---
ms rn text dr. craig for pain meds change of frequency, but patient will be seen by dr. brar- pain doctor today in the afternoon per md.
[2021-03-23] MEDS: KETOROLAC TROMETHAMINE INJ 30 MG/ML VIAL IV PRN ×2 (15:08→22:48)
--- NOTE | 2021-03-23 15:45 | NUR ---
ms rn i took 1 mg from [facility] and added to the one mg that i took, and gave a total of 2mg iv.
[2021-03-23 16:00] VITALS: BP 106/59
[2021-03-23] MEDS: IV NS 0.9% 1,000 ML IV PRN (18:06)
[2021-03-23] MEDS: HYDROCODONE/APAP 5/325MG TABLET PO PRN (18:49)
--- NOTE | 2021-03-23 18:56 | NUR ---
ms rn on bed, no distress noted,all needs attended.
--- NOTE | 2021-03-23 19:41 | NUR ---
MS RN OPENING NOTES PATIENT WAS SEEN AWAKE LYING ON HER BED. PATIENT IS ALERT AND ORIENTED X4. PATIENT IS ABLE TO MAKE HER NEEDS KNOWN. PATIENT IS ON ROOM AIR WITH NO RESPIRATORY DISTRESS AT THIS TIME. PATIENT HAS AN IV ACCESS ON HER LEFT HAND GAUGE#20. SAFETY PRECAUTIONS ARE IN PLACE: BED IS LOCKED, SIDE RAILS UP, AND CALL LIGHT IS WITHIN EASY REACH OF THE PATIENT. WILL CONTINUE TO MONITOR THE PATIENT.
[2021-03-23 20:00] VITALS: BP 138/86
[2021-03-23] MEDS ORDERED: CLINDAMYCIN IV RTU IN D5W 900 MG/50 ML PIGGYBACK IV SCH (20:00)
[2021-03-23] MEDS ORDERED: MORPHINE SULFATE SR 15 MG TABLET.SA PO SCH (21:00)
[2021-03-23] MEDS: CLINDAMYCIN 900 MG in IV D5W 50 ML IV SCH (21:13)
--- NOTE | 2021-03-23 21:25 | NUR ---
MS RN NOTES PATIENT C/0 10/10 PAIN. MORPHINE 15 PO WAS GIVEN. WILL CONT. TO MONITOR PATIENT.
--- NOTE | 2021-03-23 21:28 | NUR ---
MS RN NOTES PATIENT C/0 10/10 PAIN. DILAUDID 2 MG IV WAS GIVEN. WILL CONT. TO MONITOR PATIENT.
--- NOTE | 2021-03-23 23:29 | NUR ---
MS RN NOTES PATIENT C/0 10/10 PAIN. DILAUDID 2 MG IV WAS GIVEN. WILL CONT. TO MONITOR PATIENT.
[2021-03-24] MEDS: HYDROCODONE/APAP 5/325MG TABLET PO PRN (00:23)
--- NOTE | 2021-03-24 00:23 | NUR ---
MS RN NOTES PATIENT C/0 7/10 PAIN. NORCO 5/325 MG PO WAS GIVEN. WILL CONT. TO MONITOR PATIENT.
[2021-03-24] MEDS: ONDANSETRON HCL/PF 4 MG/2 ML VIAL IVP PRN ×2 (00:41→21:00)
[2021-03-24] MEDS: IV NS 0.9% 1,000 ML IV PRN ×2 (01:26→21:00)
[2021-03-24] MEDS: HYDROMORPHONE 1 MG/1 ML DISP.SYRIN IV PRN ×7 (02:01→23:13)
--- NOTE | 2021-03-24 02:01 | NUR ---
MS RN NOTES PATIENT C/0 10/10 PAIN. DILAUDID 2 MG IV WAS GIVEN. WILL CONT. TO MONITOR PATIENT.
[2021-03-24] MEDS: CLINDAMYCIN 900 MG in IV D5W 50 ML IV SCH ×3 (04:05→20:47)
[2021-03-24 06:43] LABS: CALCIUM, SERUM 8.3 mg/dL (8.5-10.1); CREATININE 0.6 mg/dL (0.6-1.3); MAGNESIUM 1.8 mg/dL (1.8-2.4); PHOSPHORUS 3.6 mg/dL (2.5-4.9)
[2021-03-24 06:49] LABS: BASOPHILS # (AUTO) 0.1 /CMM (0.0-0.2); BASOPHILS % (AUTO) 0.3 % (0.0-2.0); LYMPHOCYTES # (AUTO) 3.4 /CMM (0.8-4.8); LYMPHOCYTES % (AUTO) 17.5 % (20.0-44.0); MEAN CORPUSCULAR HGB CONC 33 g/dl (31.0-36.0); MEAN CORPUSCULAR VOLUME 85 fL (82-100); MONOCYTES # (AUTO) 1.6 /CMM (0.1-1.30); MONOCYTES % (AUTO) 8.4 % (2.0-12.0); NEUTROPHILS # (AUTO) 14.3 /CMM (1.8-8.9); NEUTROPHILS % (AUTO) 73.8 % (43.0-81.0); PLATELET COUNT (AUTO) 249 /CMM (150-450); RED BLOOD CELL COUNT(AUTO) 2.39 MIL/uL (4.0-5.2); WHITE BLOOD COUNT (AUTO) 19.4 K/uL (4.3-11.0)
[2021-03-24 07:32] LABS: THYROID STIMULATING HORMONE 1.421 uIU/mL (0.358-3.74)
--- NOTE | 2021-03-24 07:39 | NUR ---
MS RN CLOSING NOTES PATIENT WAS SEEN AWAKE LYING ON HER BED. PATIENT IS ALERT AND ORIENTED X4. PATIENT IS ABLE TO MAKE HER NEEDS KNOWN. PATIENT IS ON ROOM AIR WITH NO RESPIRATORY DISTRESS AT THIS TIME. SAFETY PRECAUTIONS ARE IN PLACE: BED IS LOCKED, SIDE RAILS UP, AND CALL LIGHT IS WITHIN EASY REACH OF THE PATIENT. ENDORSED CARE TO DAY SHIFT NURSE.
[2021-03-24 08:00] VITALS: BP 122/83
[2021-03-24 08:43] LABS: HEMATOCRIT 20 % (33-45); HEMOGLOBIN 6.8 g/dL (11.5-14.8)
[2021-03-24] MEDS ORDERED: POTASSIUM CHLORIDE 20 MEQ TAB.PRT.SR PO ONE (09:00)
[2021-03-24] MEDS: GABAPENTIN 300 MG CAPSULE PO SCH ×4 (09:00→16:22)
[2021-03-24 09:21] LABS: LYMPHOCYTES % (MANUAL) 10 % (16-48); MONOCYTES % (MANUAL) 8 % (0-11.0); NEUTROPHILS % (MANUAL) 82 (42-76)
[2021-03-24] MEDS: KETOROLAC TROMETHAMINE INJ 30 MG/ML VIAL IV SCH ×3 (09:37→20:47)
--- NOTE | 2021-03-24 10:32 | NUR ---
MS RN NOTE PATIENT REFUSED GABAPENTIN - STATED SHE DOES NOT WANT ANYTHING NEW TO TREAT HER PAIN, SHE WANTS WHAT SHE KNOWS WORKS.
--- NOTE | 2021-03-24 12:21 | NUR ---
MS RN NOTE ORDERED BLOOD TRANSFUSION FOR HGB 6.8. PATIENT REFUSED - SAYS THAT SHE RECEIVED A TRANSFUSION AWHILE BACK AND HAD A BAD REACTION THAT CAUSED A STROKE AND PT WAS IN A COMA FOR 3 DAYS. MD AWARE. CHARGE NURSE AWARE.
[2021-03-24] MEDS: oxyCODONE/APAP (5/325 MG) 1 UDTAB TABLET PO PRN (15:03)
[2021-03-24 16:00] VITALS: BP 100/64
--- NOTE | 2021-03-24 19:00 | NUR ---
MS RN CLOSING NOTES PATIENT CURRENTLY LYING IN BED, AWAKE. SPENCER MARTINEZ AT BEDSIDE. A/O X4. ON ROOM AIR - TOLERATING WELL. NO DISTRESS NOTED. PATIENT STATES PAIN IS 10/10 DUE TO SICKLE CELL CRISIS. LAST PAIN MED GIVEN @ 1728 - DILAUDID 2MG IV. IV ACCESS TO RIGHT HAND #22 - INTACT BUT HARD TO PUSH. NO REDNESS OR INFILTRATION NOTED. PATIENT HAD MIDLINE PLACED IN RIGHT UPPER ARM THIS AFTERNOON, BUT PULLED IT OUT LATER IN THE DAY. PENDING NEW MIDLINE INSERTION. PATIENT USES BEDSIDE COMMODE AND BED MCMAHAN WITH ASSISTANCE. AMBULATORY WITH ASSIST. SAFETY PRECAUTIONS IN PLACE. BED IN LOWEST, LOCKED POSITION. CALL LIGHT WITHIN REACH. WILL ENDORSE TO CASE REPAIRER NURSE FOR GULSHAN.
[2021-03-24 20:00] VITALS: BP 111/78
[2021-03-25] MEDS: HYDROMORPHONE 1 MG/1 ML DISP.SYRIN IV PRN ×10 (01:02→23:03)
[2021-03-25] MEDS: KETOROLAC TROMETHAMINE INJ 30 MG/ML VIAL IV SCH ×3 (02:35→14:47)
[2021-03-25] MEDS: ONDANSETRON HCL/PF 4 MG/2 ML VIAL IVP PRN (03:04)
[2021-03-25] MEDS: CLINDAMYCIN 900 MG in IV D5W 50 ML IV SCH ×3 (04:52→20:16)
--- NOTE | 2021-03-25 05:25 | NUR ---
MS RN NOTES ER CALLED FLOOR. PT CALLED 911. PT SCREAMING AND CURSING AT STAFF. CRYING OVER THE PHONE. PT C/O PAIN. DILAUDID GIVEN ORDERED. WILL CONTINUE TO MONITOR
[2021-03-25 05:29] LABS: BILIRUBIN,URINE NEGATIVE (NEGATIVE); COLOR,URINE YELLOW (YELLOW); LEUKOCYTE ESTERASE ,URINE NEGATIVE (NEGATIVE); NITRITE, URINE NEGATIVE (NEGATIVE); PROTEIN,URINE NEGATIVE (NEGATIVE); UGLUCOSE NEGATIVE (NEGATIVE)
[2021-03-25 06:09] LABS: RBC,URINE 0-2 /HPF (0-2); WBC,URINE 0-2 /HPF (0-3)
[2021-03-25 06:10] LABS: BACTERIA,URINE None seen /HPF (None Seen); SQUAMOUS EPITHELIAL CELL,UR Few /HPF (None Seen)
--- NOTE | 2021-03-25 06:30 | NUR ---
MS RN NOTES AWAKE & RESPONSIVE. NOT IN ANY DISTRESS. NO SOB NOTED. DENIES ANY PAIN OR DISCOMFORT AT THIS TIME. WITH IVF INFUSING WELL. MONITORED ACCORDINGLY. CALL LIGHT WITHIN REACH. BED IN LOWEST POSITION. SR UP X 2 FOR SAFETY. WILL ENDORSE TO NEXT SHIFT.
[2021-03-25 06:38] LABS: BASOPHILS # (AUTO) 0.1 /CMM (0.0-0.2); BASOPHILS % (AUTO) 0.5 % (0.0-2.0); EOSINOPHILS % (AUTO) 0.6 % (0.0-6.0); LYMPHOCYTES # (AUTO) 3.2 /CMM (0.8-4.8); LYMPHOCYTES % (AUTO) 16.4 % (20.0-44.0); MEAN CORPUSCULAR HGB CONC 35 g/dl (31.0-36.0); MEAN CORPUSCULAR VOLUME 83 fL (82-100); MONOCYTES # (AUTO) 1.6 /CMM (0.1-1.30); MONOCYTES % (AUTO) 8.1 % (2.0-12.0); NEUTROPHILS # (AUTO) 14.7 /CMM (1.8-8.9); NEUTROPHILS % (AUTO) 74.4 % (43.0-81.0); PLATELET COUNT (AUTO) 195 /CMM (150-450); RED BLOOD CELL COUNT(AUTO) 2.16 MIL/uL (4.0-5.2); WHITE BLOOD COUNT (AUTO) 19.8 K/uL (4.3-11.0)
[2021-03-25 06:52] LABS: CALCIUM, SERUM 8.5 mg/dL (8.5-10.1); CREATININE 0.5 mg/dL (0.6-1.3); MAGNESIUM 1.7 mg/dL (1.8-2.4); PHOSPHORUS 3.4 mg/dL (2.5-4.9)
[2021-03-25 07:12] LABS: HEMATOCRIT 18 % (33-45); HEMOGLOBIN 6.3 g/dL (11.5-14.8)
--- NOTE | 2021-03-25 07:47 | NUR ---
MS RN OPENING NOTES Patient is A&Ox4. Awake, responsive to care. Pt only verbalized concern is pain management. Pt reassured by nurse that pain medications ordered will be given on time and there will be follow up for PRN meds.
[2021-03-25 08:00] VITALS: BP 119/81
[2021-03-25] MEDS ORDERED: Magnesium 1GM/D5W 100ML PREMIX 100 ML IV SCH (08:00)
[2021-03-25 08:23] LABS: BAND % (MANUAL) 1 % (0.0-5.0); EOSINOPHILS % (MANUAL) 1 % (0-4); LYMPHOCYTES % (MANUAL) 15 % (16-48); MONOCYTES % (MANUAL) 7 % (0-11.0); NEUTROPHILS % (MANUAL) 76 (42-76)
[2021-03-25] MEDS: IV NS 0.9% 1,000 ML IV SCH ×2 (08:24→18:15)
[2021-03-25] MEDS: GABAPENTIN 300 MG CAPSULE PO SCH ×4 (09:00→16:41)
--- NOTE | 2021-03-25 10:00 | NUR ---
RN MS NOTES PT SEEN BY DR. HOLLINS, PLAN OF CARE DISCUSSED BY MD EXTENSIVELY WITH PT, PT REFUSED BLOOD TRANSFUSION, STATED THAT SHE HAD A BAD REACTION TO IT, REFUSED PSYCHIATRIC EVALUATION, STATED THAT SHE DOES NOT HAVE A MENTAL PROBLEM, CALL LIGHT WITHIN REACH, NEEDS ATTENDED IN A TIMELY MANNER.
--- NOTE | 2021-03-25 11:53 | NUR ---
MS RN NOTES Patient noted to have self-inflicted scratches to back with some areas having the top layer of skin off. No s/s of infection at this time, minimal bleeding. Cleaned with ns, pat dry keep open to air. Educated patient to keep as clean and dry as possible. MD made aware with new order for wound consult. Noted and input order.
[2021-03-25 15:49] VITALS: BP 115/86
--- NOTE | 2021-03-25 18:36 | NUR ---
MS RN NOTES Pt is A&Ox4 and awake for entirety of this shift. Throughout shift patient says she is in 8 or 10/10 pain. States her pain has never been lower than an 8 but is able to carry out a casual conversation, laugh, and move freely. No facial grimacing, no grunting, no moaning, no crying, no screaming. At times pt did report feeling cold despite perspiration. Afebrile. Patient states she feels no symptoms other than pain. States she feels as though the doctors are not taking her pain seriously. Continuous requests to increase her IV dilaudid. Does not want Percocet even after being told she had it as a PRN order. Pain managed promptly with medication as ordered. Continue with IVF, midline is intact and patent.
[2021-03-25 20:00] VITALS: BP 105/57
--- NOTE | 2021-03-25 20:00 | NUR ---
MS/RN OPENING NOTE RECEIVED PATIENT RESTING IN BED. AWAKE, ALERT AND ORIENTED X 4. ABLE TO MAKE NEEDS KNOWN. C/O GENERALIZED PAIN 07/22. PATIENT REFUSING PERCOCET AT THIS TIME. WILL ADMINISTER DILAUDID WHEN DUE. IV ACCESS TO RIGHT UPPER ARM MIDLINE INTACT AND PATENT. CONTINUES ON IVF NS @ 100ML/HR. CONTINUES ON IV ABX. CALL LIGHT WITHIN REACH. ASPIRATION, FALL AND SAFETY PRECAUTIONS MAINTAINED. WILL CONTINUE TO MONITOR.
--- NOTE | 2021-03-25 21:15 | NUR ---
MS/RN NOTE PATIENT WITH C/O GENERALIZED PAIN / - GIVEN PRN DILAUDID WITH SOME EFFECT.
--- NOTE | 2021-03-25 23:10 | NUR ---
MS/RN NOTE PATIENT WITH C/O GENERALIZED PAIN 08/21- GIVEN PRN DILAUDID WITH PENDING EFFECT.
--- NOTE | 2021-03-26 01:00 | NUR ---
MS/RN NOTE PATIENT CURRENTLY SLEEPING. WILL CONTINUE TO MONITOR.
[2021-03-26] MEDS: IV NS 0.9% 1,000 ML IV SCH (03:59)
[2021-03-26] MEDS: HYDROMORPHONE 1 MG/1 ML DISP.SYRIN IV PRN ×10 (04:00→22:14)
[2021-03-26] MEDS: CLINDAMYCIN 900 MG in IV D5W 50 ML IV SCH ×3 (04:35→21:32)
[2021-03-26] MEDS: oxyCODONE/APAP (5/325 MG) 1 UDTAB TABLET PO PRN ×3 (05:04→23:12)
[2021-03-26 06:19] LABS: BASOPHILS # (AUTO) 0.1 /CMM (0.0-0.2); BASOPHILS % (AUTO) 0.3 % (0.0-2.0); EOSINOPHILS % (AUTO) 0.6 % (0.0-6.0); LYMPHOCYTES # (AUTO) 2.8 /CMM (0.8-4.8); LYMPHOCYTES % (AUTO) 15.6 % (20.0-44.0); MEAN CORPUSCULAR HGB CONC 35 g/dl (31.0-36.0); MEAN CORPUSCULAR VOLUME 84 fL (82-100); MONOCYTES # (AUTO) 1.6 /CMM (0.1-1.30); MONOCYTES % (AUTO) 8.8 % (2.0-12.0); NEUTROPHILS # (AUTO) 13.4 /CMM (1.8-8.9); NEUTROPHILS % (AUTO) 74.7 % (43.0-81.0); PLATELET COUNT (AUTO) 237 /CMM (150-450); RED BLOOD CELL COUNT(AUTO) 2.13 MIL/uL (4.0-5.2); WHITE BLOOD COUNT (AUTO) 17.9 K/uL (4.3-11.0)
[2021-03-26 06:26] LABS: CALCIUM, SERUM 7.8 mg/dL (8.5-10.1); CREATININE 0.6 mg/dL (0.6-1.3); POTASSIUM 3.3 mmol/L (3.5-5.1)
[2021-03-26 06:30] LABS: HEMOGLOBIN 6.3 g/dL (11.5-14.8)
[2021-03-26 06:31] LABS: HEMATOCRIT 18 % (33-45)
--- NOTE | 2021-03-26 06:45 | NUR ---
MS/RN CLOSING NOTE PATIENT CURRENTLY RESTING IN BED. AWAKE, ALERT AND ORIENTED X 4. ABLE TO MAKE NEEDS KNOWN. NO C/O PAIN AT THIS TIME. IV ACCESS TO RIGHT UPPER ARM MIDLINE INTACT AND PATENT. CONTINUES ON IVF NS @ 100ML/HR. CONTINUES ON IV ABX. CALL LIGHT WITHIN REACH. ASPIRATION, FALL AND SAFETY PRECAUTIONS MAINTAINED. WILL ENDORSE PLAN OF CARE TO ONCOMING SHIFT.
--- NOTE | 2021-03-26 07:36 | NUR ---
MS/RN OPENING NOTE PATIENT RESTING IN BED. AWAKE, ALERT AND ORIENTED X 4. ABLE TO MAKE NEEDS KNOWN. C/O GENERALIZED PAIN 07/22. PATIENT REFUSING PERCOCET AT THIS TIME. WILL ADMINISTER DILAUDID WHEN DUE. PATIENT IS STATING PERCOCET WILL NOT WORK ONLY IV DILAUDID. IV ACCESS TO RIGHT UPPER ARM MIDLINE INTACT AND PATENT. CONTINUES ON IVF NS @ 100ML/HR. CALL LIGHT WITHIN REACH. ASPIRATION, FALL AND SAFETY PRECAUTIONS MAINTAINED. WILL CONTINUE TO MONITOR.
[2021-03-26 08:00] VITALS: BP 125/74
[2021-03-26] MEDS: GABAPENTIN 300 MG CAPSULE PO SCH ×3 (08:04→16:03)
[2021-03-26 08:25] LABS: LYMPHOCYTES % (MANUAL) 15 % (16-48); MONOCYTES % (MANUAL) 7 % (0-11.0); NEUTROPHILS % (MANUAL) 78 (42-76)
[2021-03-26] MEDS ORDERED: POTASSIUM CHLORIDE 20 MEQ TAB.PRT.SR PO SCH (10:00)
--- NOTE | 2021-03-26 10:27 | NUR ---
RN MS NOTES PT SEEN BY DR. HOLLINS, PLAN OF CARE DISCUSSED BY MD EXTENSIVELY WITH PT, PT REFUSED BLOOD TRANSFUSION, STATED THAT SHE HAD A BAD REACTION TO IT, REFUSED ORAL PAIN MEDICATION STATED ONLY 3 MG OF DILAUDED WOULD HELP. MD AWARE BY BEDSIDE, NNO AT THIS TIME. CALL LIGHT WITHIN REACH, NEEDS ATTENDED IN A TIMELY MANNER. WILL CONTINUE TO MONITOR
--- NOTE | 2021-03-26 12:19 | NUR ---
RN NOTES PATIENT IS COMPLAINING OF 10/10 GENERALIZE PAIN. OFFERED PO PERCOCET MEDICATION. PATIENT REFUSED. STATED SHE WANTED IV DILAUDID, PATIENT WANTS MORE IV DILAUDID. MD AWARE, NNO. PRN PAIN MEDICATION GIVEN WILL REASSESS.
--- NOTE | 2021-03-26 14:37 | NUR ---
RN NOTES PATIENT IS COMPLAINING OF 10/10 GENERALIZE PAIN. STATED SHE WANTED IV DILAUDID, PATIENT WANTS MORE IV DILAUDID. MD AWARE, NNO. PRN PAIN MEDICATION GIVEN WILL REASSESS
[2021-03-26 16:00] VITALS: BP 119/62
[2021-03-26] MEDS: IV NS 0.9% 1,000 ML IV PRN (16:12)
--- NOTE | 2021-03-26 18:49 | NUR ---
MS/RN CLOSING NOTE PATIENT CURRENTLY RESTING IN BED. AWAKE, ALERT AND ORIENTED X 4. PATIENT IS BREATHING EVENLY AND UNLABORED ON ROOM AIR. PT ABLE TO MAKE NEEDS KNOWN. PATIENT C/O PAIN AT THIS TIME, LAST IV PAIN MEDICATION DILAUDID WAS GIVEN AT 1800. PATIENT REFUSED ORAL MEDICATION. WANTS 3 MG OF DILAUDID, AWARE, NNO. IV ACCESS TO RIGHT UPPER ARM MIDLINE INTACT AND PATENT. CONTINUES ON IVF NS @ 100ML/HR. CONTINUES ON IV ABX. CALL LIGHT WITHIN REACH. ASPIRATION, FALL AND SAFETY PRECAUTIONS MAINTAINED. WILL ENDORSE PLAN OF CARE TO ONCOMING SHIFT.
--- NOTE | 2021-03-26 19:45 | NUR ---
MS RN NOTE PATIENT AWAKE IN BED, ALERT & ORIENTED X 4. PATIENT ON ROOM AIR, NO SIGNS OF DISTRESS OR SHORTNESS OF BREATH NOTED. PATIENT ABLE TO MAKE NEEDS KNOWN. PATIENT COMPLAINING OF GENERALIZED PAIN, NO PAIN MEDS DUE AT THIS TIME, LAST IV DILAUDID GIVEN AT 1803. RIGHT UPPER ARM MIDLINE INTACT AND PATENT, RUNNING 0.9% NS @100 MLS/HR. SAFETY MEASURES IN PLACE, CALL LIGHT WITHIN REACH, BED LOCKED IN LOWEST POSITION, BED ALARM ON. WILL CONTINUE TO MONITOR
[2021-03-26 20:00] VITALS: BP_SYST 111; BP_SYST 117; BP_DIAS 71
[2021-03-27] MEDS: HYDROMORPHONE 1 MG/1 ML DISP.SYRIN IV PRN ×11 (00:34→23:13)
[2021-03-27] MEDS: IV NS 0.9% 1,000 ML IV PRN ×2 (02:55→18:23)
[2021-03-27] MEDS: oxyCODONE/APAP (5/325 MG) 1 UDTAB TABLET PO PRN ×3 (04:12→18:22)
[2021-03-27] MEDS: ONDANSETRON HCL/PF 4 MG/2 ML VIAL IVP PRN (04:17)
[2021-03-27] MEDS: CLINDAMYCIN 900 MG in IV D5W 50 ML IV SCH ×3 (05:27→21:02)
--- NOTE | 2021-03-27 07:00 | NUR ---
MS RN CLOSING NOTE PATIENT AWAKE IN BED, ALERT & ORIENTED X 4. PATIENT ON ROOM AIR, NO SIGNS OF DISTRESS OR SHORTNESS OF BREATH NOTED. PATIENT ABLE TO MAKE NEEDS KNOWN. MEDICATIONS GIVEN ORDERED. PATIENT NEEDS MET THROUGHOUT SHIFT. RIGHT UPPER ARM MIDLINE INTACT AND PATENT, RUNNING 0.9% NS @100 MLS/HR. SAFETY MEASURES IN PLACE, CALL LIGHT WITHIN REACH, BED LOCKED IN LOWEST POSITION, BED ALARM ON. WILL ENDORSE TO ENGINEERING DRAWINGS CHECKER NURSE FOR CONTINUITY OF CARE
--- NOTE | 2021-03-27 08:00 | NUR ---
MS RN OPENING NOTE RECEIVED PATIENT LYING IN BED, AWAKE, WATCHING TV. A/O X4. PATIENT ON ROOM AIR - TOLERATING WELL. NO SIGNS OF DISTRESS OR SOB NOTED. PATIENT COMPLAINING OF GENERALIZED PAIN - WILL ADMINISTER PAIN MEDICATION. IV ACCESS TO RIGHT UPPER ARM - MIDLINE - INTACT AND PATENT - RUNNING NS @100 MLS/HR. SAFETY MEASURES IN PLACE. CALL LIGHT WITHIN REACH. WILL CONTINUE TO MONITOR.
[2021-03-27] MEDS: GABAPENTIN 300 MG CAPSULE PO SCH ×3 (08:59→17:00)
[2021-03-27 09:08] LABS: CALCIUM, SERUM 8.2 mg/dL (8.5-10.1); CREATININE 0.6 mg/dL (0.6-1.3); POTASSIUM 3.2 mmol/L (3.5-5.1)
[2021-03-27] MEDS ORDERED: POTASSIUM CHLORIDE 20 MEQ TAB.PRT.SR PO ONE (09:30)
[2021-03-27 11:23] LABS: BASOPHILS # (AUTO) 0.1 /CMM (0.0-0.2); BASOPHILS % (AUTO) 0.3 % (0.0-2.0); EOSINOPHILS % (AUTO) 0.8 % (0.0-6.0); LYMPHOCYTES # (AUTO) 3.2 /CMM (0.8-4.8); LYMPHOCYTES % (AUTO) 15.6 % (20.0-44.0); MEAN CORPUSCULAR HGB CONC 35 g/dl (31.0-36.0); MEAN CORPUSCULAR VOLUME 84 fL (82-100); MONOCYTES # (AUTO) 1.9 /CMM (0.1-1.30); MONOCYTES % (AUTO) 9.1 % (2.0-12.0); NEUTROPHILS # (AUTO) 15.2 /CMM (1.8-8.9); NEUTROPHILS % (AUTO) 74.2 % (43.0-81.0); PLATELET COUNT (AUTO) 301 /CMM (150-450); RED BLOOD CELL COUNT(AUTO) 2.19 MIL/uL (4.0-5.2); WHITE BLOOD COUNT (AUTO) 20.5 K/uL (4.3-11.0)
[2021-03-27 11:54] LABS: HEMATOCRIT 18 % (33-45); HEMOGLOBIN 6.5 g/dL (11.5-14.8)
--- NOTE | 2021-03-27 12:05 | NUR ---
MS RN NOTE HEMOGLOBIN 6.5 AND HEMATOCRIT 18. PATIENT REFUSES BLOOD TRANSFUSION DUE TO BAD REACTION. CHARGE NURSE AWARE, AWARE.
[2021-03-27 12:18] LABS: EOSINOPHILS % (MANUAL) 1 % (0-4); LYMPHOCYTES % (MANUAL) 18 % (16-48); MONOCYTES % (MANUAL) 6 % (0-11.0); MYELOCYTES % 1 % (0-0); NEUTROPHILS % (MANUAL) 74 (42-76)
[2021-03-27 16:00] VITALS: BP 99/65
[2021-03-27] MEDS: FOLIC ACID 1 MG TABLET PO SCH (17:00)
--- NOTE | 2021-03-27 18:39 | NUR ---
MS RN CLOSING NOTES PATIENT CURRENTLY LYING IN BED, AWAKE, VISITOR AT BEDSIDE. A/O X4. ON ROOM AIR - TOLERATING WELL. NO DISTRESS NOTED. PATIENT STATES PAIN IS 10/10. LAST PAIN MED GIVEN @ 1701 - DILAUDID 2MG IV AND PERCOCET 10/650MG @ 1822. IV ACCESS TO RIGHT UPPER ARM - MIDLINE #22 - INTACT, RUNNING NS @ 100ML/HR. PATIENT USES BEDSIDE COMMODE WITH ASSISTANCE. SAFETY PRECAUTIONS IN PLACE. BED IN LOWEST, LOCKED POSITION. CALL LIGHT WITHIN REACH. WILL ENDORSE TO FLEXIBLE BABYSITTER NURSE FOR GULSHAN.
[2021-03-27 20:00] VITALS: BP 127/76
--- NOTE | 2021-03-27 20:00 | NUR ---
MS RN OPENING NOTE PATIENT RESTING IN BED, ALERT AND ORIENTED X4. PATIENT ON 2LPM OF OXYGEN VIA NASAL CANNULA, NO SIGNS OF DISTRESS OR SHORTNESS OF BREATH NOTED. PATIENT REPORTS 10/10 GENERALIZED PAIN, NO PAIN MEDS DUE AT THIS TIME, LAST IV DILAUDID 2 MG GIVEN AT 1902. RIGHT UPPER ARM MIDLINE INTACT AND PATENT, RUNNING 0.9% NS @100 MLS/HR. PATIENT ABLE TO MAKE NEEDS KNOWN. SAFETY MEASURES IN PLACE, BED LOCKED IN LOWEST POSITION, BED ALARM ON, SIDE RAILS UP X 2, CALL LIGHT WITHIN REACH. WILL CONTINUE TO MONITOR AND CONTINUE PLAN OF CARE
[2021-03-28] MEDS: HYDROMORPHONE 1 MG/1 ML DISP.SYRIN IV PRN ×7 (01:27→20:01)
[2021-03-28] MEDS: CLINDAMYCIN 900 MG in IV D5W 50 ML IV SCH ×3 (04:22→20:01)
[2021-03-28 06:25] LABS: BASOPHILS # (AUTO) 0.1 /CMM (0.0-0.2); BASOPHILS % (AUTO) 0.3 % (0.0-2.0); EOSINOPHILS % (AUTO) 1.9 % (0.0-6.0); LYMPHOCYTES # (AUTO) 3.8 /CMM (0.8-4.8); LYMPHOCYTES % (AUTO) 21.4 % (20.0-44.0); MEAN CORPUSCULAR HGB CONC 34 g/dl (31.0-36.0); MEAN CORPUSCULAR VOLUME 85 fL (82-100); MONOCYTES # (AUTO) 1.7 /CMM (0.1-1.30); MONOCYTES % (AUTO) 9.5 % (2.0-12.0); NEUTROPHILS # (AUTO) 11.8 /CMM (1.8-8.9); NEUTROPHILS % (AUTO) 66.9 % (43.0-81.0); PLATELET COUNT (AUTO) 255 /CMM (150-450); WHITE BLOOD COUNT (AUTO) 17.7 K/uL (4.3-11.0)
[2021-03-28 06:40] LABS: RED BLOOD CELL COUNT(AUTO) 1.81 MIL/uL (4.0-5.2)
--- NOTE | 2021-03-28 06:41 | NUR ---
MS RN NOTE RECEIVED CRITICAL LAB VALUE FROM [facility] IN LAB. HEMOGLOBIN 5.3 AND HCT 15. NOTIFIED MD CLAYTON. NO NEW ORDERS AT THIS TIME
[2021-03-28 06:43] LABS: HEMATOCRIT 15 % (33-45); HEMOGLOBIN 5.3 g/dL (11.5-14.8)
[2021-03-28] MEDS: IV NS 0.9% 1,000 ML IV PRN ×2 (07:09→19:50)
--- NOTE | 2021-03-28 07:20 | NUR ---
RN OPENING NOTE PATIENT RECEIVED IN BED RESTING IN SUPINE POSITION, ALERT AND ORIENTED X4. PATIENT ON O2 THERAPY VIA NC AT 2LPM. NO SIGNS OF DISTRESS OR SHORTNESS OF BREATH NOTED. RIGHT UPPER ARM MIDLINE INTACT AND PATENT, RUNNING 0.9% NS @100 MLS/HR. PATIENT ABLE TO MAKE NEEDS KNOWN. SAFETY MEASURES IMPLEMENTED, BED LOCKED IN LOWEST POSITION, BED ALARM ON, SIDE RAILS UP X 2, CALL LIGHT WITHIN REACH. PATIENT REPORTS PAIN AND REQUEST DILAUDID BUT NO PHYSICAL MANIFESTATIONS OF PAIN NOTED, NO GRIMACING, NO UNEASY APPEARANCE, NO MOANING. PATIENT IS RESTING CALMLY IN BED AND USING MOBILE PHONE. WILL CONTINUE TO MONITOR AND PROVIDE CARE THROUGHOUT SHIFT.
[2021-03-28 07:24] LABS: CREATININE 0.6 mg/dL (0.6-1.3); MAGNESIUM 1.8 mg/dL (1.8-2.4); PHOSPHORUS 3.6 mg/dL (2.5-4.9); POTASSIUM 3.4 mmol/L (3.5-5.1)
--- NOTE | 2021-03-28 07:45 | NUR ---
MS RN CLOSING NOTE PATIENT AWAKE IN BED, ALERT & ORIENTED X 4. PATIENT ON ROOM AIR, NO SIGNS OF DISTRESS OR SHORTNESS OF BREATH NOTED. PATIENT ABLE TO MAKE NEEDS KNOWN. MEDICATIONS GIVEN ORDERED. PATIENT NEEDS MET THROUGHOUT SHIFT. RIGHT UPPER ARM MIDLINE INTACT AND PATENT, RUNNING 0.9% NS @100 MLS/HR. SAFETY MEASURES IN PLACE, CALL LIGHT WITHIN REACH, BED LOCKED IN LOWEST POSITION, BED ALARM ON. WILL ENDORSE TO MEN'S GARMENT FITTER NURSE FOR CONTINUITY OF CARE
[2021-03-28 08:00] VITALS: BP 116/67
[2021-03-28] MEDS: GABAPENTIN 300 MG CAPSULE PO SCH ×3 (09:00→16:52)
[2021-03-28] MEDS: FOLIC ACID 1 MG TABLET PO SCH (09:00)
[2021-03-28] MEDS ORDERED: POTASSIUM CHLORIDE 20 MEQ TAB.PRT.SR PO SCH ×2 (09:30→11:30)
--- NOTE | 2021-03-28 10:56 | NUR ---
WOUND CARE CONSULT: PT PRESENTS WITH DRY SCRATCHES TO HER BACK, PRESENT ON ADMISSION. PT STATES THAT SHE THINKS SHE SCRATCHED HERSELF WHILE SLEEPING. NO ERYTHEMA, DRAINAGE OR TENDERNESS NOTED. WILL SEE PRN.
[2021-03-28] MEDS ORDERED: diphenhydrAMINE HCL 50 MG/ML VIAL IV PRN (11:00)
[2021-03-28] MEDS: ENSURE ENLIVE 237 ML LIQUID (VANILLA) PO SCH ×2 (12:00→17:54)
[2021-03-28] MEDS ORDERED: diphenhydrAMINE HCL 50 MG/ML VIAL IV ONE (13:30)
[2021-03-28] MEDS ORDERED: ACETAMINOPHEN 325 MG TABLET PO ONE (13:30)
--- NOTE | 2021-03-28 15:08 | NUR ---
PT SCHEDULED FOR FOR BLOOD TRANSFUSION. PT EDUCATION PROVIDED AND TO REPORT ANY ADVERSE EFFECTS OF TRANSFUSION REACTION SUCH CHILLS, FEVER, HIVES, ACHES, SOB, BACK PAIN. PT VERBALIZED UNDERSTANDING. PRE TRANSFUSION VS BP 139/79, HR 110, RR 18, T 98.5, SPO2 100% ON 2LPM VIA NC. BLOOD PICKED UP FROM LAB AND VERIFIED WITH COMMERCIAL INTERIOR DESIGNER. NO CLOTS, LEAKAGE OR DISCOLORATION NOTED. BLOOD TRANSFUSION VERIFIED AND WITNESSED AT PT'S BEDSIDE BY TWO NURSES. WILL CONTINUE WITH PLAN OF CARE
[2021-03-28 15:10] VITALS: BP 139/79
[2021-03-28 15:41] VITALS: BP 121/85
--- NOTE | 2021-03-28 15:41 | NUR ---
PT ONGOING BLOOD TRANSFUSION. NO REPORTS OF ANY ADVERSE REACTIONS TO TRANSFUSION SUCH CHILLS, FEVER, HIVES, ACHES, SOB, BACK PAIN. VS AT THIS TIME BP 121/85, HR 109, RR 18, T 97.9, SPO2 99% ON 2LPM VIA NC. WILL CONTINUE TO MONITOR
[2021-03-28 16:00] VITALS: BP 131/80
[2021-03-28 17:11] VITALS: BP 137/77
[2021-03-28] MEDS: oxyCODONE/APAP (5/325 MG) 1 UDTAB TABLET PO PRN ×2 (17:51→22:02)
--- NOTE | 2021-03-28 19:27 | NUR ---
attending physician explained to patient about weaning off iv pain medicine. patient verbalized understanding.
--- NOTE | 2021-03-28 19:30 | NUR ---
MS RN OPENING NOTES: RECEIVED PATIENT IN BED, AWAKE, A/O X4. NO S/S OF DISTRESS NOTED. PATIENT WAS TALKING TO THE SIGNIFICANT OTHER AT THE BEDSIDE. PATIENT WAS CALM AND COMFORTABLE, ASKED HOW TO PRONOUNCE HER NAME AND SHE REPLIED. CALL LIGHT WITHIN REACH. BED IN LOWEST AND LOCKED POSITION. INSTRUCTED TO CALL FOR ANY HELP, PATIENT VERBALIZED UNDERSTANDING. INFORMED THE PATIENT THE PRN MEDS THE DUE TIME OF THE DILAUDID AND PERCOCET AND THE FREQUENCIES OF BOTH MEDS, PATIENT VERBALIZED UNDERSTANDING. AND PATIENT STARTED SOBBING. PER REPORTS FROM [facility], DR HOLLINS CAME AND TALKED TO THE PATIENT RE: TO TITRATE THE DILAUDID IVP. CHARGE NURSE [facility].
--- NOTE | 2021-03-28 19:51 | NUR ---
RN CLOSING NOTE PATIENT IN BED RESTING IN SUPINE POSITION, ALERT AND ORIENTED X4. PATIENT ON O2 THERAPY VIA NC AT 2LPM. NO SIGNS OF DISTRESS OR SHORTNESS OF BREATH NOTED. RIGHT UPPER ARM MIDLINE INTACT AND PATENT, RUNNING 0.9% NS @100 MLS/HR. PATIENT ABLE TO MAKE NEEDS KNOWN. SAFETY MEASURES IMPLEMENTED, BED LOCKED IN LOWEST POSITION, BED ALARM ON, SIDE RAILS UP X 2, CALL LIGHT WITHIN REACH. 1 UNIT OF PRBC ADMINISTERED. PATIENT TOLERATED WELL. WILL ENDORSE CARE TO UPCOMING SHIFT.
[2021-03-28 20:00] VITALS: BP 127/76
[2021-03-28 21:18] LABS: HEMOGLOBIN 7.8 g/dL (11.5-14.8)
--- NOTE | 2021-03-28 22:04 | NUR ---
PATIENT IS IN BED, AWAKE, TALKING TO THE WILLY ANN, PATIENT IS CALM AND APPEARS COMFORTABLE. SIGNIFICANT OTHER IS AT THE BEDSIDE. PATIENT AND SIGNIFICANT OTHER WAS ASKING THE WILLY ANN IF THEY CAN ORDER SOME FOOD FROM OUTSIDE.
--- NOTE | 2021-03-28 23:03 | NUR ---
PATIENT IS ASLEEP AT THIS MOMENT.
--- NOTE | 2021-03-28 23:34 | NUR ---
PATIENT IS ASLEEP AT THIS MOMENT. PATIENT IS SNORING. BED ALARM ON.
--- NOTE | 2021-03-29 01:25 | NUR ---
CHECKED PATIENT, ASLEEP AT THIS TIME.
--- NOTE | 2021-03-29 02:40 | NUR ---
checked on patient, asleep at this time.
[2021-03-29] MEDS: HYDROMORPHONE 1 MG/1 ML DISP.SYRIN IV PRN ×2 (04:57→08:28)
[2021-03-29] MEDS: CLINDAMYCIN 900 MG in IV D5W 50 ML IV SCH ×3 (05:02→20:29)
[2021-03-29] MEDS: oxyCODONE/APAP (5/325 MG) 1 UDTAB TABLET PO PRN ×2 (06:02→23:38)
[2021-03-29] MEDS: IV NS 0.9% 1,000 ML IV PRN (07:06)
--- NOTE | 2021-03-29 07:20 | NUR ---
RN OPENING NOTE PATIENT RECEIVED IN BED RESTING ON MODERATE TO HIGH BACK REST. PATIENT IS ALERT AND ORIENTED X4. PATIENT ON O2 THERAPY VIA NC AT 2LPM. NO SIGNS OF DISTRESS OR SHORTNESS OF BREATH NOTED. RIGHT UPPER ARM MIDLINE INTACT AND PATENT, WITH IVF RUNNING 0.9% NS @100 MLS/HR. PATIENT ABLE TO MAKE NEEDS KNOWN. SAFETY MEASURES MADE, BED LOCKED IN LOWEST POSITION, BED ALARM ON, SIDE RAILS UP X 2, CALL LIGHT AND TABLE WITHIN REACH. PATIENT REPORTS PAIN CONSTANTLY WITH NO RELIEF, MD AWARE, NO GRIMACING, NO UNEASY APPEARANCE, NO MOANING. PATIENT IS RESTING CALMLY IN BED AND USING MOBILE PHONE WATCHING. WILL CONTINUE TO MONITOR AND PROVIDE CARE THROUGHOUT SHIFT.
[2021-03-29 07:29] LABS: CALCIUM, SERUM 8.1 mg/dL (8.5-10.1); CREATININE 0.6 mg/dL (0.6-1.3); POTASSIUM 3.5 mmol/L (3.5-5.1)
[2021-03-29 08:00] VITALS: BP 121/76
--- NOTE | 2021-03-29 08:45 | NUR ---
PATIENT WAS SEEN BY DR. MACIAS, PER PATIENT'S REQUEST. NO ORDERS AT THIS TIME. WILL CONTINUE MONITORING PATIENT.
[2021-03-29] MEDS: ENSURE ENLIVE 237 ML LIQUID (VANILLA) PO SCH ×2 (09:00→17:18)
--- NOTE | 2021-03-29 09:00 | NUR ---
RN NOTES PATIENT SEEN BY DR. OAKES AND DR. HOLLINS.
[2021-03-29] MEDS: GABAPENTIN 300 MG CAPSULE PO SCH ×3 (09:43→17:16)
[2021-03-29] MEDS: FOLIC ACID 1 MG TABLET PO SCH (09:43)
--- NOTE | 2021-03-29 09:47 | NUR ---
PATIENT REFUSED ENSURE, SAYING SHE DOESN'T FEEL LIKE TAKING IT. HEALTH TEACHING DONE REGARDING IMPORTANCE OF NUTRITION AND SUPPLEMENTATION. VERBALIZED UNDERSTANDING AND APPRECIATION.
[2021-03-29] MEDS ORDERED: HYDROMORPHONE 1 MG/1 ML DISP.SYRIN IV PRN (10:30)
[2021-03-29] MEDS: oxyCODONE/APAP (5/325 MG) 1 UDTAB TABLET PO SCH ×3 (12:01→20:28)
[2021-03-29] MEDS: HYDROMORPHONE INJ 2 MG/ML DISP.SYRIN IV PRN ×3 (12:58→21:32)
[2021-03-29 16:00] VITALS: BP 130/90
--- NOTE | 2021-03-29 19:30 | NUR ---
MS RN OPENING NOTE RECEIVED PATIENT IN BED. A/OX4. ON OXYGEN 2L/MIN VIA NASAL CANNULA. RESPIRTIONS ARE EVEN AND UNLABORED. NO S/S SOB NOTED. PATIENT IS C/O OF PAIN 10. Addendum: 03/29/21 at 2100 by MARCUS NAVARRETE RN CONTINUING NOTE... PATIENT IS C/O PAIN 10/10, GENERALIZED. PATIENT STATES SHE IS UNHAPPY WITH HER PAIN MANAGEMENT. INFORMED PATIENT OF WHAT IS ORDERED FOR HER CURRENT PAIN REGIMEN. AND THAT THE DAY RN AND DAY PRINT PRESS OPERATOR HAVE ALREADY LEFT DR. OAKES, HELMINTHOLOGY TEACHER, A MESSAGE AND WE AE AWAITING A CALL BACK. IV ACCESS IN MICHELLE MIDLINE RUNNING NS@100ML/HR. BED IS LOW AND LOCKED, HOB ELEVATED IN SEMI FOWLERS, SIDE RIALS UP X2, CALL LIGHT WITHIN REACH. FAMILY AT BEDSIDE. WILL CONTINUE TO MONITOR THROUGHOUT SHIFT.
[2021-03-29 20:00] VITALS: BP 119/73
--- NOTE | 2021-03-29 22:57 | NUR ---
MS RN NOTE CALLED ELECTRIC METER READER ,ZOILA ALMONTE, TO INFORM HIM PATIENT WOULD LIKE TO SPEAK WITH SOMEONE ABOUT HER PAIN MANAGEMENT AND SHE FEELS THAT DR. OAKES'S REGIMEN IS NOT WORKING FOR HER. ZOILA ALMONTE STATED HE DOES NOT WANT TO CHANGE PAIN REGIMEN D/T DR. OAKES IS THE EPITAXIAL REACTOR OPERATOR. NO NEW ORDERS NOTED AND INFORMED PATIENT. PATIENT WAS UNHAPPY AND CALLED 911.
--- NOTE | 2021-03-30 00:47 | NUR ---
MS RN NOTE CALLED DR. OAKES AND LEFT A MESSAGE THAT PATIENT IS STILL IN PAIN. HAS BEEN YELLING THE PAST 2 HOURS. AWAITING CALL BACK.
[2021-03-30] MEDS: oxyCODONE/APAP (5/325 MG) 1 UDTAB TABLET PO SCH ×7 (00:57→20:28)
[2021-03-30] MEDS: HYDROMORPHONE INJ 2 MG/ML DISP.SYRIN IV PRN ×4 (01:36→22:03)
[2021-03-30] MEDS ORDERED: HYDROMORPHONE 1 MG/1 ML DISP.SYRIN IV ONE ×2 (02:00→03:00)
[2021-03-30] MEDS ORDERED: LORAZEPAM INJ 2 MG/ML VIAL IV ONE (02:30)
--- NOTE | 2021-03-30 02:30 | NUR ---
ms rn note informed diamond powder technician henry duarte that patient is feeling anxious , screaming and stating that she doesnt want to as well as she would like to speak with him. henry duarte ordered ativan.
[2021-03-30] MEDS ORDERED: KETOROLAC TROMETHAMINE INJ 30 MG/ML VIAL IM ONE (03:00)
--- NOTE | 2021-03-30 03:00 | NUR ---
ms rn note henry duarte spoke with patient. will administer new orders. Vikram also stated if Dilaudid is given now then wait to give Ativan for one hour. order read back and noted.
[2021-03-30 04:14] VITALS: BP 86/49
--- NOTE | 2021-03-30 04:30 | NUR ---
MS RN NOTE - RAPID RESPONSE. RAPID CALLED AT 0414. PATIENT WAS SCREAMING, HYPERVENTILATING, STATING SHE HAS CHEST PAIN. STAT EKG ORDERED. PATIENT PLACED ON TELE. TELEMONITOR READ SINU TACHY HR 115. ALL DISCIPLINES ARRIVED TO BED SIDE, INCLUDING RT, RNS, SALES TRADER, DOOR FRAME ASSEMBLER MACHINE, RN SUP, SUPERVISOR ASBESTOS REMOVAL. PATIENT MOVING TOO MUCH TO OBTAIN EKG.SHE WAS DELIRIOUS AND UNCOOPERATIVE. PATIENT WAS ALSO COLD AND CLAMMY, O2 SAT 77% PACED ON OXYGEN. STATES SHE IS SEEING THINGS. CALLED FNPS, ZOILA ALMONTE, INFORMED HIM OF SITUATION AND VITAL SIGNS : BP 122/88 HR 115 O2 100%. BLOOD SUGAR 88. RESEARCH CENTER DIRECTOR CAN AUDIBLE HEAR PATIENT SCREAMING, ORDERED TO ADMINISTER THE ATIVAN 1MG. BP TAKEN 142/108. ATIVAN GIVEN. INSTRUCTED PATIENT TO BREATHE AND TRY TO CALM DOWN. REASSESS VITAL SIGNS ONCE PATIENT WAS CALM, ENDING VITALS 121/79 , HR 117, 02 100% ON 2L/MIN. ENDING 0427.
[2021-03-30] MEDS: CLINDAMYCIN 900 MG in IV D5W 50 ML IV SCH (04:36)
--- NOTE | 2021-03-30 05:07 | NUR ---
MS RN NOTE INFORMED ZOILA ALMONTE ,GUARD SUPERVISOR, THE LINK TRAINER RECOMMENDATIONS FOR HALDOL PRN AND A SITTER. ALSO INFORMED GUARD SUPERVISOR THAT PATIENT HAS BEEN SCREAMING TO SEE A DOCTOR AND DOESN'T WANT TO SEE NURSES. AFTER ATIVAN ADMINISTRATION SHE WAS CALM FOR FEW MINUTES BUT BEGAN SCREAMING AGAIN. PATIENT THROUGH HER FOOD AND PITCHER AROUND THE ROOM. GUARD SUPERVISOR, STATES HE WILL PLACE ORDER FOR HALDOL.
[2021-03-30] MEDS ORDERED: HALOPERIDOL LACTATE INJ 5 MG/ML VIAL IM ONE (05:30)
--- NOTE | 2021-03-30 05:30 | NUR ---
MS RN NOTE ONCE HALDOL 2.5MG WAS VERIFIED BY SUPERVISOR [facility]. WENT TO ASSESS PATIENT, SHE IS NOW QUIET AND INTERMITTENTLY DOZING OFF. WILL NOT ADMINISTER HALDOL 2.5MG.
--- NOTE | 2021-03-30 05:48 | NUR ---
ms rn note did not administer percocet 5/325 x2 d/t patient given 1mg ativan.
--- NOTE | 2021-03-30 06:50 | NUR ---
MS RN CLOSING NOTE PATIENT IS RESTING IN BED, SLEEPING. A/OX4. TOLERATING ROOM AIR AT THIS TIME. NO RESP DISTRESS. NO C/O PAIN AT THIS TIME. IN NO APPARENT DISTRESS. IV ACCESS IN MICHELLE MIDLINE RUNNING NS@100ML/HR. BED IS LOW AND LOCKED, SIDE RIALS UP X3, CALL LIGHT WITHIN REACH. EVS AT BEDSIDE CLEANING ROOM. WILL ENDORSE TO ONCOMING SHIFT.
--- NOTE | 2021-03-30 07:25 | NUR ---
MS/RN OPENING NOTE RECEIVED PATIENT SLEEPING IN BED. AROUSABLE BY CALL OR SOUND. PATIENT REQUESTED TO BE DISTURBED. PATIENT WITH MIDLINE ON THE RIGHT UPPER ARM WITH IV FLUID HYDRATION OF NORMAL SALINE RUNNING AT 100ML/HR. PATIENT WAS ENDORSED BY DRY DRUG WORKER NURSE HAVING SOME ISSUES AND SOME MEDICATIONS WERE GIVEN TO HER TO CALM HER DOWN AND MANAGE HER PAIN. PROVIDED WITH CALM AND QUIET ENVIRONMENT. CALL LIGHT WITHIN REACH. ASPIRATION, FALL AND SAFETY PRECAUTIONS MAINTAINED. WILL CONTINUE TO MONITOR.
--- NOTE | 2021-03-30 07:50 | NUR ---
RT NOTE: PATIENT REFUSED EKG AT THIS TIME. NOTIFIED NURSE.
[2021-03-30 08:00] VITALS: BP 104/66
--- NOTE | 2021-03-30 08:12 | NUR ---
RN NOTES PATIENT WAS SEEN TODAY BY DR. HOLLINS, ACCOMPANIED BY ME. TRIED TO WAKE PATIENT UP FOR MD ASSESSMENT AND EVAL BUT PATIENT IS SLEEPING SOUNDLY, ABLE TO AROUSE BUT GOES BACK TO SLEEP; ALSO INFORMED BY RT THAT PATIENT ASKED FOR EKG PROCEDURE TO BE DONE LATER BECAUSE SHE WANTS TO SLEEP. IV FLUIDS RESTARTED AT BEDSIDE. WILL CONTINUE TO MONITOR.
[2021-03-30] MEDS: ENSURE ENLIVE 237 ML LIQUID (VANILLA) PO SCH ×2 (09:00→17:00)
[2021-03-30] MEDS: GABAPENTIN 300 MG CAPSULE PO SCH ×4 (09:00→17:00)
[2021-03-30] MEDS: FOLIC ACID 1 MG TABLET PO SCH ×2 (09:00→10:44)
--- NOTE | 2021-03-30 10:16 | NUR ---
PATIENT NOW AWAKE AND MEDICATIONS OFFERED BUT REFUSED, ORAL MEDICATIONS EXCEPT THE PRN DILAUDID. SHE CLAIMS THAT SHE CANNOT TAKE ANYTHING PER [place] AND SHE DOESN'T FEEL LIKE SHE CAN TAKE ANYTHING. I HAVE OFFERRED HER SOMETHING TO EAT AND JUICE OR APPLE SAUCE TO TAKE THE MEDICATION WITH, BUT PATIENT REFUSED ORAL MEDICATIONS STILL. DIALUDID GIVEN ORDERED FOR COMPLAINT OF PAIN OF 10/10. PATIENT DOES NO TAPPEAR IN DISTRESS AND WAS CONVERSANT AND APPEARS UPSET. BUT AFTER TALKING TO THE PATIENT AND SHE HAD SIGNIFICANTLY CALMED DOWN AND COOPERATIVE AT THIS TIME.
[2021-03-30 10:17] LABS: BASOPHILS # (AUTO) 0.1 /CMM (0.0-0.2); BASOPHILS % (AUTO) 0.6 % (0.0-2.0); EOSINOPHILS % (AUTO) 1.9 % (0.0-6.0); HEMATOCRIT 24 % (33-45); HEMOGLOBIN 8.1 g/dL (11.5-14.8); MEAN CORPUSCULAR HGB CONC 33 g/dl (31.0-36.0); MEAN CORPUSCULAR VOLUME 90 fL (82-100); NEUTROPHILS # (AUTO) 8.2 /CMM (1.8-8.9); NEUTROPHILS % (AUTO) 65.5 % (43.0-81.0); PLATELET COUNT (AUTO) 346 /CMM (150-450); WHITE BLOOD COUNT (AUTO) 12.6 K/uL (4.3-11.0)
--- NOTE | 2021-03-30 10:45 | NUR ---
RN NOTES OFFERED PATIENT BEDPAN SHE WANTED TO URINATE; PATIENT IS CONTINENT, URINE IS LIGHT NUSRAT IN COLOR, NO HEMATURIA NOTED. PATIENT VERBALIZED, "THE DOCTORS ARE TRYING TO KILL ME" AND "MY FRIEND IS "; CLARIFIED WITH PATIENT WHO HER FRIEND WAS AND SHE STATED, "HER NAME IS KEELEY AND SHE'S AT ANOTHER HOSPITAL". PATIENT WAS REASSURED THAT NO ONE AT THE UNIT IS TRYING TO KILL HER AND THAT NO ONE WILL BE ALLOWED TO DO THAT TO HER. CALMED DOWN AT THE MOMENT. WILL CONTINUE TO MONITOR.
[2021-03-30 11:21] LABS: EOSINOPHILS % (MANUAL) 4 % (0-4); LYMPHOCYTES % (MANUAL) 25 % (16-48); MONOCYTES % (MANUAL) 5 % (0-11.0); NEUTROPHILS % (MANUAL) 66 (42-76)
--- NOTE | 2021-03-30 11:53 | NUR ---
PAIN REASSESSMENT DONE, PATIENT CLAIMS SHE STILL HAVE GENERALIZED ACHING PAIN OF 10/10. BUT PATIENT SEEMED TO BE CALM WITH NO GRIMACING. PROVIDED WITH CALM AND QUIET ENVIRONMENT.
[2021-03-30] MEDS ORDERED: HYDROMORPHONE INJ 2 MG/ML DISP.SYRIN ONE (14:49)
--- NOTE | 2021-03-30 14:56 | NUR ---
RN NOTES PATIENT W/ STANDING ORDER OF DILAUDID 2MG, CHANGED FREQUENCY TO Q6H PRN FROM Q4H; STOCK MED OF DILAUDID OBTAINED FOR THE [id number] DOSE TO BE GIVEN DIRECTED MEDICATION DID NOT APPEAR IN THE PRN LIST.
[2021-03-30 16:00] VITALS: BP 104/62
[2021-03-30] MEDS ORDERED: LORAZEPAM INJ 2 MG/ML VIAL IV PRN (16:00)
--- NOTE | 2021-03-30 18:43 | NUR ---
PATIENT WITH DUE GABAPENTIN AND PERCOCET BUT PATIENT IS ASLEEP. PATIENT IS WITH HER BOYFRIEND AND PATIENT HAD JUST A AN OUTBURST EARLIER. WILL CONTINUE TO MONITOR PATIENT.
--- NOTE | 2021-03-30 19:30 | NUR ---
RN CLOSING NOTE PATIENT IN BED ASLEEP WITH NO SIGNS OF DISTRESS. PATIENT ACCOMPANIED BY BOYFRIEND. PATIENT IS CONSIDERING TRANSFER TO ANOTHER HOSPITAL BECAUSE SHE IS NOT GETTING THE PAIN MEDICATION DOSAGE SHE WANTS. DR HOLLINS AND MAINTENANCE ENGINEER OIL FIELD ALREADY SPOKE WITH HER. AWAITING THEIR FINAL DECISION. WILL ENDORSE PATIENT TO NEXT SHIFT FOR CONTINUITY OF CARE. PATIENT STILL ASLEEP AND PROVIDED WITH CALM AND QUIET ENVIRONMENT.
--- NOTE | 2021-03-30 19:55 | NUR ---
MS RN NOTES PATIENT IN BED ASLEEP WITH NO SIGNS OF DISTRESS. PATIENT ACCOMPANIED BY BOYFRIEND. ON ROOM AIR TOLERATING WELL AT THIS TIME. ALL NURSING NEEDS MET AT THIS TIME. SAFETY MEASURES FOLLOWED AT ALL TIMES CALL LIGHT WITHIN REACH WILL CONTINUE TO MONITOR.
[2021-03-31] MEDS: oxyCODONE/APAP (5/325 MG) 1 UDTAB TABLET PO SCH ×4 (01:02→12:02)
[2021-03-31] MEDS: IV NS 0.9% 1,000 ML IV PRN (01:23)
[2021-03-31] MEDS: HYDROMORPHONE INJ 2 MG/ML DISP.SYRIN IV PRN ×3 (03:59→15:30)
[2021-03-31 06:37] LABS: BASOPHILS % (AUTO) 0.4 % (0.0-2.0); EOSINOPHILS % (AUTO) 2.1 % (0.0-6.0); HEMATOCRIT 29 % (33-45); HEMOGLOBIN 9.1 g/dL (11.5-14.8); LYMPHOCYTES # (AUTO) 3.5 /CMM (0.8-4.8); LYMPHOCYTES % (AUTO) 28.6 % (20.0-44.0); MEAN CORPUSCULAR HGB CONC 32 g/dl (31.0-36.0); MEAN CORPUSCULAR VOLUME 91 fL (82-100); MONOCYTES # (AUTO) 1.2 /CMM (0.1-1.30); MONOCYTES % (AUTO) 9.8 % (2.0-12.0); NEUTROPHILS # (AUTO) 7.2 /CMM (1.8-8.9); NEUTROPHILS % (AUTO) 59.1 % (43.0-81.0); PLATELET COUNT (AUTO) 384 /CMM (150-450); RED BLOOD CELL COUNT(AUTO) 3.15 MIL/uL (4.0-5.2); WHITE BLOOD COUNT (AUTO) 12.2 K/uL (4.3-11.0)
[2021-03-31 06:51] LABS: CALCIUM, SERUM 9.3 mg/dL (8.5-10.1); CREATININE 0.6 mg/dL (0.6-1.3); POTASSIUM 3.3 mmol/L (3.5-5.1)
--- NOTE | 2021-03-31 07:00 | NUR ---
MS RN NOTES PATIENT IN BED ASLEEP WITH NO SIGNS OF DISTRESS. ON ROOM AIR TOLERATING WELL AT THIS TIME. ALL NURSING NEEDS MET AT THIS TIME. PT IS ALWAYS IN PAIN .PAIN MEDICATION PROVIDED THROUGHOUT THE SHIFT NEEDED. SAFETY MEASURES FOLLOWED AT ALL TIMES CALL LIGHT WITHIN REACH. PT TO BE TRANSFERRED TO [facility] TODAY. WILL ENDORSE CARE TO DAY SHIFT NURSE.
--- NOTE | 2021-03-31 07:48 | NUR ---
RN OPENING NOTE PATIENT AWAKE IN BED. A/O X3 AND MAURITIAN SPEAKING. PAIN PRESENT AND MEDS GIVEN PER PROTOCOL. NO NAUSEA PRESENT. CURRENTLY ON RA WITH NO SOB OR RESPIRATORY DISTRESS PRESENT. NO TOOL CRIB CLERK PRESENT. PATIENT IS ON BEDREST WITH COMMODE AT BEDSIDE. WOUNDS PRESENT ON BACK, PICTURES IN CHART. NO EDEMA PRESENT. MICHELLE MIDLINE PRESENT. SAFETY MEASURES IN PLACE. SIDE RAILS RAISED. BED LOWERED. CALL LIGHT WITHIN REACH. WILL CONTINUE TO MONITOR.
[2021-03-31 08:00] VITALS: BP 93/55
[2021-03-31] MEDS ORDERED: POTASSIUM CHLORIDE 20 MEQ TAB.PRT.SR PO ONE (08:00)
[2021-03-31] MEDS: FOLIC ACID 1 MG TABLET PO SCH (08:11)
[2021-03-31] MEDS: GABAPENTIN 300 MG CAPSULE PO SCH ×2 (08:11→12:02)
[2021-03-31] MEDS: ENSURE ENLIVE 237 ML LIQUID (VANILLA) PO SCH (08:56)
[2021-03-31] MEDS ORDERED: OXYC-121 PO (09:06)
--- NOTE | 2021-03-31 16:11 | NUR ---
BRUSH CLEARING LABORER NOTE PATIENT DISCHARGED HOME VIA PRIVATE CAR ACCOMPANIED BY SIGNIFICANT OTHER. PRESCRIPTIONS GIVEN TO PATIENT AND EDUCATED ABOUT MEDICINES. EXITCARE UTILIZED AND SELF-CARE EDUCATION GIVEN TO PATIENT. IV LINE REMOVED. ID BAND REMOVED. WOUND PICTURES TAKEN AND PLACED IN CHART. BELONGINGS CHECKED AND GIVEN TO PATIENT.
== END 2021-03-31 16:30 | disposition home or self-care (01) | DRG 662 ==
LOC: ER 01:33 → TRANSITION 06:54 → MED 07:39
PROVIDERS: ADMIT Internal Medicine; ATTEND Internal Medicine
PROC: 05H533Z Insertion of Infusion Device into Right Subclavian Vein, Percutaneous Approach (ICD-10-PCS; 2021-03-24)
PROC: B546ZZA Ultrasonography of Right Subclavian Vein, Guidance (ICD-10-PCS; 2021-03-24)
PROC: 05HB33Z Insertion of Infusion Device into Right Basilic Vein, Percutaneous Approach (ICD-10-PCS; 2021-03-24)
PROC: B54MZZA Ultrasonography of Right Upper Extremity Veins, Guidance (ICD-10-PCS; 2021-03-24)
PROC: 30233N1 Transfusion of Nonautologous Red Blood Cells into Peripheral Vein, Percutaneous Approach (ICD-10-PCS; principal; 2021-03-28)
DX: D57.00 Hb-SS disease with crisis, unspecified (principal); D72.829 Elevated white blood cell count, unspecified; Z88.0 Allergy status to penicillin; D64.9 Anemia, unspecified; E87.6 Hypokalemia; G89.4 Chronic pain syndrome; F32.9 Major depressive disorder, single episode, unspecified; R94.5 Abnormal results of liver function studies; Z20.822 Contact with and (suspected) exposure to COVID-19
CPT/HCPCS: 36410; 36415; 71045-TC; 80048-TC; 80061-TC; 80076-TC; 81001; 82728-TC; 83540-TC; 83615-TC; 83735-TC; 84100-TC; 84443-TC; 84702-TC; 85025-TC; 85027-TC; 85045-TC; 85730-TC; 86850-TC; 87040-TC; 87081-TC; 97112-TC; 97530-TC; C9803; G0378; J1170; J1200; J1885; J2060; J2405; J3475; J3490; J7030; J7040; J7060; P9016

== ENCOUNTER 2023-09-03 10:14 | Emergency (ER) | payer OTHER ==
[~2023-09-03] VITALS: Ht 170.2 cm; Wt 59.0 kg
[~2023-09-03 10:14] MED LIST changes: -ONDA4TAB5 PO; +OXYC-121 PO; -OXYC1TAB12 PO
[2023-09-03 11:07] VITALS: BP 128/78; TEMP 98; O2SAT 97
== END 2023-09-03 11:08 | disposition home or self-care (01) ==
LOC: ER 10:41
DX: F41.9 Anxiety disorder, unspecified (principal); Z88.0 Allergy status to penicillin; Z60.2 Problems related to living alone